=== PATIENT | female | born 1965 | race Caucasian/White ===

== ENCOUNTER 2016-12-21 16:51 | Emergency (ER) | payer BC ==
[2016-12-21] MEDS ORDERED: Ondansetron 4 MG Tab.DIS PO ONE (17:12)
--- NOTE | 2016-12-21 17:19 | EDM.PDOC ---
ED HPI GI/ABDOMINAL - General Chief Complaint: Gastrointestinal Problem Stated Complaint: Nausea, vomiting and dizziness Time Seen by Provider: 12/21/16 17:10 Source of Information: Reports: Patient History Limitations: Reports: No limitations - History of Present Illness INITIAL COMMENTS - FREE TEXT/NARRATIVE: Patient states that she ate a chicken potpie at around 12:30 today and began feeling nauseated at about 13:30. She was continuing to have some abdominal discomfort and dizziness and decided to come to the ED for evaluation. She vomited once on the way here and became very dizzy and diaphoretic afterwards. She currently denies fever, chills, abdominal pain, chest pain, and SOB. She has no family history of heart attack. She has not had any abdominal surgeries. Symptom Onset Date: 12/21/16 Symptom Onset Time: 01:30 Timing/Duration: Reports: Hour(s): (4), Improving Location: RLQ Quality: Reports: ache Severity: mild Improves with: Reports: lying down Worsens with: Reports: defecating, vomiting, other (bearing down and coughing) Associated Symptoms (-Female): Reports: chest pain, back pain, diarrhea, bloody stools, fever/chills, other (Dizziness) - Related Data Allergies/ADRs: Allergies Allergy/AdvReac Type Severity Reaction Status Date / Time No Known Allergies Allergy Verified 12/21/16 17:04 Home Meds: Home Meds Levothyroxine Sodium 50 mcg DAILY 12/21/16 [History] Ondansetron [Zofran ODT] 4 mg PO Q4H #30 tab.dis 12/21/16 [Rx] ED ROS GENERAL - Review of Systems Review Of Systems: ROS reveals no pertinent complaints other than HPI. Constitutional: Reports: no symptoms HEENT: Reports: No symptoms Respiratory: Reports: no symptoms Cardiovascular: Reports: No symptoms Endocrine: Reports: no symptoms GI/Abdominal: Reports: Nausea, Vomiting : Reports: no symptoms Musculoskeletal: Reports: no symptoms Skin: Reports: no symptoms Neurological: Reports: dizziness Psychiatric: Reports: No symptoms Hematologic/Lymphatic: Reports: no symptoms Immunologic: Reports: no symptoms ED EXAM, GI/ABD - Physical Exam Exam: See Below Exam Limited By: No limitations General Appearance: alert, WD/WN, no apparent distress Head: atraumatic, normocephalic Neck: normal inspection, supple, non-tender, full range of motion Respiratory/Chest: no respiratory distress, lungs clear, normal breath sounds, no accessory muscle use, chest non-tender Cardiovascular: normal peripheral pulses, regular rate, rhythm, no edema, no gallop, no JVD, no murmur, no rub GI/Abdominal: normal bowel sounds, soft, non tender, no organomegaly, no distention, no abnormal bruit, no mass, hernia (right lower quadrant easily reducible direct wall abdominal hernia) (Female) Exam: Deferred Rectal (Female) Exam: Deferred Extremities: normal inspection, no pedal edema, normal capillary refill Neurological: alert, oriented, normal cognition, normal gait, normal reflexes, no motor/sensory deficits Psychiatric: normal affect, normal mood Skin Exam: Warm, Dry, Intact, Normal color, No rash Lymphatic: no adenopathy EKG INTERPRETATION Rhythm: NSR Tucker: normal P-wave: present QRS: normal ST-T: normal QT: normal Course - Vital Signs Last Recorded V/S: Last Vital Signs Temp 36.8 C 12/21/16 16:52 Pulse 87 12/21/16 16:52 Resp 16 12/21/16 16:52 BP 138/82 12/21/16 16:52 Pulse Ox - Orders/Labs/Meds Orders: Active Orders 24 hr Category Date Time Status EKG Documentation Completion [RC] STAT Care 12/21/16 17:12 Ordered Meds: Medications Discontinued Medications Generic Name Dose Route Start Last Admin Trade Name Mirtha PRN Reason Stop Dose Admin Ondansetron HCl 8 mg 12/21/16 17:12 Zofran Odt PO 12/21/16 17:13 ONETIME ONE Departure - Departure Time of Disposition: 05:50 Disposition: Home, Self-Care 01 Condition: good Clinical Impression: Vomiting Prescriptions: Ondansetron [Zofran ODT] 4 mg PO Q4H #30 tab.dis Instructions: Nausea and Vomiting, Adult, [id number], Viral Gastroenteritis, Adult, [id number] Forms: ED Department Discharge - Problem List Review Problem List Initiated/Reviewed/Updated: Yes - My Orders Last 24 Hours: My Active Orders 12/21/16 17:12 EKG Documentation Completion [RC] STAT - Assessment/Plan Last 24 Hours: My Active Orders 12/21/16 17:12 EKG Documentation Completion [RC] STAT Assessment:: Nausea and vomiting/Viral gastroenteritis Plan: Zofran ODT 4m every 4-6 hours as needed for nausea and vomiting. Return if no improvement in two days. Return for assessment or follow up with primary care if you have increased abdominal pain, fever, shortness of breath, or chest pain.
[2016-12-21 17:24] VITALS: BP 138/82
== END 2016-12-21 17:45 | disposition home or self-care (01) ==
LOC: VM.ED 16:51
DX: R11.2 Nausea with vomiting, unspecified (principal); Z79.899 Other long term (current) drug therapy
CPT/HCPCS: 93005; 99283; A9270

== ENCOUNTER 2019-04-02 11:59 | Emergency (ER) | payer BC, OTHER ==
[2019-04-02] MEDS ORDERED: Sodium Chloride 0.9% 10 ML Syringe FLUSH PRN (12:26)
[2019-04-02 12:28] VITALS: BP 132/91
[2019-04-02] MEDS ORDERED: Morphine 2 MG/ML Syringe IVPUSH ONE (12:31)
[2019-04-02] MEDS ORDERED: Iopamidol 612 MG/ML 100 ML Bottle IVPUSH ONE (13:10)
[2019-04-02 13:18] LABS: CHLORIDE,CL 102 mmol/L (98-107); SODIUM,NA 140 mmol/L (136-145)
[2019-04-02 13:21] LABS: ANION GAP 14.7 mmol/L (10-20)
--- NOTE | 2019-04-02 13:58 | CT ---
[id number] CT/CT Abdomen Pelvis W IV EXAM: CT Abdomen Pelvis W IV CLINICAL DATA: RIGHT LOWER QUADRANT PAIN. COMPARISON STUDY: None. FINDINGS: Lung bases are clear. Liver, spleen, gallbladder, pancreas, and adrenal glands are unremarkable. Bilateral renal cysts. There is a least one cyst within the midpole of the right kidney which demonstrates a few septations and areas of hyperdensity. It measures up to 2.2 cm. This may be hemorrhagic. No bowel obstruction or inflammation. The appendix is visualized and appears normal. No lymphadenopathy, free fluid, or pneumoperitoneum. The cervix and endometrium are asymmetrically enlarged with masslike density in the uterus. Scattered changes of spondylosis the spine. No fracture or osseous lesion. IMPRESSION: 1. Cervix and endometrium are asymmetrically in the enlarged. Additionally there are multiple uterine fibroids. Given the appearance, further evaluation is recommended with gynecological examination. Additionally MRI of the pelvis could be considered for further evaluation on a nonemergent basis. 2. Complex mid pole right renal cyst measuring up to 2.2 cm. Follow-up renal ultrasound in 6 months is recommended to ensure stability. Israel Garg DO 04/02/19 2234 Thank you for allowing us to participate in the care of your patient.
--- NOTE | 2019-04-02 14:29 | EDM.PDOC ---
ED HPI GENERAL MEDICAL PROBLEM - General Chief Complaint: Abdominal Pain Stated Complaint: SHARP ABDOMIN PAIN RIGHT SIDE Time Seen by Provider: 04/02/19 12:14 Source of Information: Reports: Patient History Limitations: Reports: No Limitations - History of Present Illness INITIAL COMMENTS - FREE TEXT/NARRATIVE: Patient reports lower abdominal pain on the right side and this started 2-3 days ago. She does have a scheduled hysterectomy April 21 due to abnormal findings to her endometrium and cervix. No nausea or vomiting. Worse with movement. No urinary symptoms. Is currently menstruating. Denies chest pain, sob, headache, neck pain, no vomiting, no fever or chills. States she was here last year and had a hernia put back in place manually. Onset: Gradual Duration: Intermittent Location: Reports: Abdomen Quality: Reports: Ache Severity: Mild Associated Symptoms: Reports: No Other Symptoms Right Lower Abdomen Pain Score (Numeric/FACES): 7 - Related Data Allergies Allergy/AdvReac Type Severity Reaction Status Date / Time No Known Allergies Allergy Verified 04/02/19 12:47 Home Meds: Home Meds Levothyroxine Sodium 50 mcg DAILY 12/21/16 [History] Ondansetron [Zofran ODT] 4 mg PO Q4H #30 tab.dis 12/21/16 [Rx] Past Medical History Musculoskeletal History: Reports: Other (See Below) Other Musculoskeletal History: wrist fx Endocrine/Metabolic History: Reports: Hypothyroidism - Past Surgical History GI Surgical History: Reports: Hernia, Abdominal Social & Family History - Tobacco Use Smoking Status *Q: Never Smoker ED ROS GENERAL - Review of Systems Review Of Systems: See Below Constitutional: Reports: No Symptoms HEENT: Reports: No Symptoms Respiratory: Reports: No Symptoms Cardiovascular: Reports: No Symptoms Endocrine: Reports: No Symptoms GI/Abdominal: Reports: Abdominal Pain : Reports: No Symptoms Musculoskeletal: Reports: No Symptoms Skin: Reports: No Symptoms Neurological: Reports: No Symptoms Psychiatric: Reports: No Symptoms Hematologic/Lymphatic: Reports: No Symptoms Immunologic: Reports: No Symptoms ED EXAM, GI/ABD - Physical Exam Exam: See Below Exam Limited By: No Limitations General Appearance: Alert, WD/WN, No Apparent Distress Eyes: Bilateral: Normal Appearance, EOMI Ears: Normal TMs Throat/Mouth: Normal Inspection, Normal Lips, Normal Teeth, Normal Gums, Normal Oropharynx, Normal Voice, No Airway Compromise Head: Atraumatic, Normocephalic Neck: Normal Inspection, Supple, Non-Tender, Full Range of Motion Respiratory/Chest: No Respiratory Distress, Lungs Clear, Normal Breath Sounds, No Accessory Muscle Use, Chest Non-Tender Cardiovascular: Normal Peripheral Pulses, Regular Rate, Rhythm, No Edema, No Gallop, No JVD, No Murmur, No Rub GI/Abdominal Exam: Normal Bowel Sounds, Soft, Non-Tender, No Organomegaly, No Distention, No Abnormal Bruit, No Mass, Pelvis Stable Back Exam: Normal Inspection, Full Range of Motion, NT Extremities: Normal Inspection, Normal Range of Motion, Non-Tender, Normal Capillary Refill, No Pedal Edema Neurological: Alert, Oriented, CN II-XII Intact, Normal Cognition, Normal Gait, Normal Reflexes, No Motor/Sensory Deficits Psychiatric: Normal Affect, Normal Mood Skin Exam: Warm, Dry, Intact, Normal Color, No Rash Lymphatic: No Adenopathy Course - Vital Signs Last Recorded V/S: Last Vital Signs Temp 36.7 C 04/02/19 12:03 Pulse 85 04/02/19 12:03 Resp 18 04/02/19 12:03 BP 132/91 H 04/02/19 12:03 Pulse Ox 98 04/02/19 12:03 - Orders/Labs/Meds Orders: Active Orders 24 hr Category Date Time Status URINALYSIS W/MICROSCOPIC [UA W/MICROSCOPIC] [URIN] Stat Lab 04/02/19 13:28 Ordered Sodium Chloride 0.9% [Saline Flush] Med 04/02/19 12:26 Active 10 ml FLUSH ASDIRECTED PRN Saline Lock Insert [OM.PC] Routine Oth 04/02/19 12:26 Ordered Medication Orders Sodium Chloride (Saline Flush) 10 ml FLUSH ASDIRECTED PRN PRN Reason: Keep Vein Open Labs: Laboratory Tests 04/02/19 04/02/19 04/02/19 Range/Units 12:40 12:40 12:40 WBC 7.1 (4.0-10.0) x10^3/uL RBC 3.99 L (4.00-5.50) x10^6/uL Hgb 12.0 (12.0-16.0) g/dL Hct 36.1 (33.0-47.0) % MCV 90.5 (78.0-93.0) fL MCH 30.1 (26.0-32.0) pg MCHC 33.2 (32.0-36.0) g/dL RDW Coeff of Pop 13.1 (10.0-15.0) % Plt Count 329 (130-400) x10^3/uL Neut % (Auto) 71.1 (50.0-80.0) % Lymph % (Auto) 20.9 L (25.0-50.0) % Day % (Auto) 6.6 (2.0-11.0) % Eos % (Auto) 1.3 (0.0-4.0) % Baso % (Auto) 0.1 L (0.2-1.2) % Sodium 140 (136-145) mmol/L Potassium 3.7 (3.5-5.1) mmol/L Chloride 102 (98-107) mmol/L Carbon Dioxide 27 (21-32) mmol/L Anion Gap 14.7 (10-20) mmol/L BUN 10 (7-18) mg/dL Creatinine 0.7 (0.55-1.02) mg/dL Est Cr Clr Drug Dosing TNP Estimated GFR (MDRD) > 60 Glucose 99 (74-106) mg/dL Lactic Acid 1.4 (0.4-2.0) mmol/L Calcium 9.0 (8.5-10.1) mg/dL Corrected Calcium 9.00 (8.5-10.1) mg/dL Total Bilirubin 0.6 (0.2-1.0) mg/dL AST 20 (15-37) U/L ALT 26 (14-59) U/L Alkaline Phosphatase 90 (46-116) U/L C-Reactive Protein 1.0 H (<=0.9) mg/dL Total Protein 8.4 H (6.4-8.2) g/dL Albumin 4.0 (3.4-5.0) g/dL Globulin 4.4 Albumin/Globulin Ratio 0.91 Amylase 42 (25-115) U/L Lipase 207 (73-393) U/L Meds: Medications Generic Name Dose Route Start Last Admin Trade Name Freq PRN Reason Stop Dose Admin Sodium Chloride 10 ml 04/02/19 12:26 Saline Flush FLUSH ASDIRECTED PRN Keep Vein Open Discontinued Medications Generic Name Dose Route Start Last Admin Trade Name Refugioq PRN Reason Stop Dose Admin Iopamidol 100 ml 04/02/19 13:10 04/02/19 13:37 Isovue-300 (61%) IVPUSH 04/02/19 13:11 100 ml ONETIME ONE Administration Morphine Sulfate 2 mg 04/02/19 12:31 Morphine IVPUSH 04/02/19 12:32 ONETIME ONE - Radiology Interpretation Free Text/Narrative:: CT abdomen shows renal cyst, asymmetric endometrium and cervix. No acute process. Normal appendix. Departure - Departure Time of Disposition: 14:51 Disposition: Home, Self-Care 01 Condition: Good Clinical Impression: Abdominal pain, Pyelonephritis - Discharge Information *PRESCRIPTION DRUG MONITORING PROGRAM REVIEWED*: Not Applicable *COPY OF PRESCRIPTION DRUG MONITORING REPORT IN PATIENT [place]: Not Applicable Instructions: Abdominal Pain, Adult, Pyelonephritis, Adult, [id number], Ciprofloxacin tablets, Probiotics Referrals: Rufina Bass MD [Primary Care Provider] - Additional Instructions: Plan 1. Follow up with your primary doctor or shearer operator relating to your abdominal pain. 2. MRI may be needed for evaluation of your cervix and endometrium due to enlargement and asymmetry. 3. May alternate ibuprofen and tylenol as needed for pain relief. 4. Stay well hydrated 5. Take Cipro once a day for the next 4 days. Your first dose was given here. You have pyelonephritis which is a kidney infection. 6. Please call if you have any questions or concerns. - Problem List & Annotations (1) Abdominal pain SNOMED Code(s): 35889473 Code(s): R10.9 - UNSPECIFIED ABDOMINAL PAIN Status: Acute Priority: Low Current Visit: Yes Qualifiers: Abdominal location: right lower quadrant Qualified Code(s): R10.31 - Right lower quadrant pain - Problem List Review Problem List Initiated/Reviewed/Updated: Yes - My Orders Last 24 Hours: My Active Orders 04/02/19 12:26 Sodium Chloride 0.9% [Saline Flush] 10 ml FLUSH ASDIRECTED PRN Saline Lock Insert [OM.PC] Routine 04/02/19 13:28 URINALYSIS W/MICROSCOPIC [UA W/MICROSCOPIC] [URIN] Stat - Assessment/Plan Last 24 Hours: My Active Orders 04/02/19 12:26 Sodium Chloride 0.9% [Saline Flush] 10 ml FLUSH ASDIRECTED PRN Saline Lock Insert [OM.PC] Routine 04/02/19 13:28 URINALYSIS W/MICROSCOPIC [UA W/MICROSCOPIC] [URIN] Stat Assessment:: right lower quadrant abdominal pain pyelonephritis Plan: Plan 1. Follow up with your primary doctor or shearer operator relating to your abdominal pain. 2. MRI may be needed for evaluation of your cervix and endometrium due to enlargement and asymmetry. 3. May alternate ibuprofen and tylenol as needed for pain relief. 4. Stay well hydrated 5. Take Cipro once a day for the next 4 days. Your first dose was given here. You have pyelonephritis which is a kidney infection. 6. Please call if you have any questions or concerns.
[2019-04-02] MEDS ORDERED: Ciprofloxacin 500 MG Tab PO ONE (14:46)
== END 2019-04-02 14:58 | disposition home or self-care (01) ==
LOC: VM.ED 11:59
DX: N12 Tubulo-interstitial nephritis, not specified as acute or chronic (principal); E03.9 Hypothyroidism, unspecified; Z79.899 Other long term (current) drug therapy
CPT/HCPCS: 36415; 74177; 80053; 81001; 82150; 83605; 83690; 85025; 86140; 99284-25; A9270-GY; Q9967

== ENCOUNTER 2021-09-02 11:02 | Inpatient (IN) | payer OTHER ==
--- NOTE | 2021-09-02 10:49 | EDM.PDOC ---
ED HPI GENERAL MEDICAL PROBLEM - General Stated Complaint: COVID SOB Time Seen by Provider: 09/01/21 22:40 Source of Information: Reports: Patient History Limitations: Reports: No Limitations - History of Present Illness INITIAL COMMENTS - FREE TEXT/NARRATIVE: Patient comes emergency department today from the clinic with concerns of Covid and hypoxia. This patient had a positive Covid test on 08/21/2021. She did not receive any antibody infusion.Patient seen Alberto has a history of hypothyroidism hypercholesteremia obesity KAMLA. Over the past 3 to 4 days she has had increasing shortness of breath generalized malaise and fatigue. She has been drinking fluids well but not eating much for solids. She has no pain in her chest syncope palpitations lightheadedness or dizziness. No abdominal pain nausea or vomiting. No hematuria dysuria urinary frequency. No black tarry stools. She is not Covid vaccinated. She is influenza vaccinated. Noted in the clinic to have an oxygen saturation of 80 to 81% on room air. - Related Data Allergies Allergy/AdvReac Type Severity Reaction Status Date / Time No Known Allergies Allergy Verified 09/02/21 11:12 Home Meds: Home Meds Levothyroxine Sodium 50 mcg PO DAILY 12/21/16 [History] Past Medical History Musculoskeletal History: Reports: Other (See Below) Other Musculoskeletal History: wrist fx Endocrine/Metabolic History: Reports: Hypothyroidism - Past Surgical History GI Surgical History: Reports: Hernia, Abdominal ED ROS GENERAL - Review of Systems Review Of Systems: Comprehensive ROS is negative, except as noted in HPI. ED EXAM, GENERAL - Physical Exam Exam: See Below Exam Limited By: No Limitations General Appearance: Alert, WD/WN, Mild Distress (Mild distress. NO labored breathing able to speak in 4-6 word sentences. ). No: Lethargic, Obtunded Ears: Normal External Exam Nose: Normal Inspection Throat/Mouth: Normal Inspection Head: Atraumatic, Normocephalic Neck: Normal Inspection Respiratory/Chest: No Respiratory Distress, No Accessory Muscle Use, Chest Non- Tender, Crackles (Fine inspiratory crackles bilaterally. ) Cardiovascular: Normal Peripheral Pulses, Regular Rate, Rhythm GI/Abdominal: Normal Bowel Sounds, Soft, Non-Tender (Female) Exam: Deferred Rectal (Female) Exam: Deferred Back Exam: Normal Inspection, Decreased Range of Motion Extremities: Normal Inspection, Normal Range of Motion, No Pedal Edema, Normal Capillary Refill Neurological: Alert, Oriented, Normal Cognition, Normal Gait, No Motor/Sensory Deficits Psychiatric: Normal Affect, Normal Mood Skin Exam: Intact, Cool, Diaphoretic, Pallor Course - Vital Signs Last Recorded V/S: Last Vital Signs Temp 98.5 F 09/02/21 17:52 Pulse 75 09/02/21 17:52 Resp 28 H 09/02/21 17:52 BP 123/84 09/02/21 17:52 Pulse Ox 91 L 09/02/21 21:06 - Orders/Labs/Meds Orders: Active Orders 24 hr Category Date Time Status CULTURE BLOOD [BC] Stat Lab 09/02/21 10:40 Received CULTURE BLOOD [BC] Stat Lab 09/02/21 10:58 Received CULTURE URINE [RM] Stat Lab 09/02/21 11:27 Received Sodium Chloride 0.9% [Saline Flush] Med 09/02/21 10:35 Active 10 ml FLUSH ASDIRECTED PRN Blood Culture x2 Reflex Set [OM.PC] Stat Oth 09/02/21 10:35 Ordered Peripheral IV Insertion Adult [OM.PC] Stat Ot 09/02/21 10:34 Ordered Medication Orders Acetaminophen (Acetaminophen 325 Mg Tab) 650 mg PO Q4H PRN PRN Reason: Fever Last Admin: 09/02/21 17:57 Dose: 650 mg Documented by: KIN Ascorbic Acid (Ascorbic Acid 500 Mg Tab) 1,000 mg PO BID [facility] Last Admin: 09/02/21 20:27 Dose: 1,000 mg Documented by: PRIETO Ceftriaxone Sodium (Ceftriaxone 1 Gm Vial) 1 gm IVPUSH DAILY@1200 [facility] Cholecalciferol (Cholecalciferol (Vitamin D3) 25 Mcg Tab) 25 mcg PO DAILY [facility] Dexamethasone 2 mg/ (Dexamethasone 4 mg) 6 mg PO DAILY [facility] Enoxaparin Sodium (Enoxaparin 40 Mg/0.4 Ml Syringe) 40 mg SUBCUT DAILY@1200 [facility] Last Admin: 09/02/21 14:21 Dose: 40 mg Documented by: KIN Remdesivir 100 mg/ Sodium (Chloride) 100 mls @ 100 mls/hr IV Q24H [facility] Stop: 09/06/21 12:59 Levothyroxine Sodium (Levothyroxine 50 Mcg Tab) 50 mcg PO DAILY [facility] Sodium Chloride (Sodium Chloride 0.9% 10 Ml Syringe) 10 ml FLUSH ASDIRECTED PRN PRN Reason: Keep Vein Open Last Admin: 09/02/21 20:29 Dose: 10 ml Documented by: PRIETO Zinc Sulfate (Zinc Sulfate 220 Mg Cap) 220 mg PO DAILY [facility]I Labs: Laboratory Tests 09/02/21 09/02/21 09/02/21 Range/Units 10:40 10:58 10:58 WBC 5.8 (4.0-10.0) x10^3/uL RBC 4.50 (4.00-5.50) x10^6/uL Hgb 12.9 (12.0-16.0) g/dL Hct 38.2 (33.0-47.0) % MCV 84.9 (78.0-93.0) fL MCH 28.7 (26.0-32.0) pg MCHC 33.8 (32.0-36.0) g/dL RDW Coeff of Pop 12.9 (10.0-15.0) % Plt Count 322 (130-400) x10^3/uL Immature Gran % (Auto) 0.90 H (0.00-0.43) % Neut % (Auto) 85.6 H (50.0-80.0) % Lymph % (Auto) 10.5 L (25.0-50.0) % [place] % (Auto) 2.8 (2.0-11.0) % Eos % (Auto) 0.0 (0.0-4.0) % Baso % (Auto) 0.2 (0.2-1.2) % Neut # (Auto) 5.0 (1.8-7.7) x10^3/uL Lymph # (Auto) 0.6 L (1.0-4.8) x10^3/uL [place] # (Auto) 0.2 (0.0-0.8) x10^3/uL Eos # (Auto) 0.0 (0.0-0.5) x10^3/uL Baso # (Auto) 0.0 (0.0-0.2) x10^3/uL Immature Gran # (Auto) 0.05 (0.00-0.07) x10^3/uL PT (9.9-12.5) SEC INR (2.0-3.5) APTT (25.6-32.8) SEC D-Dimer, Quantitative (<=0.58) mg/LFEU POC VBG pH (7.33-7.43) pH POC VBG pCO2 (41-51) mmHg POC VBG pO2 mmHg POC VBG HCO3 (22-29) mmol/L POC Venous O2 Sat % VBG Base Excess (-(2)-3) mmol/L POC FiO2 Sodium 142 (136-145) mmol/L Potassium 3.2 L (3.5-5.1) mmol/L Chloride 102 (98-107) mmol/L Carbon Dioxide 28 (21-32) mmol/L POC Venous Total CO2 (23-30) mmol/L Anion Gap 15.2 H (5-15) mmol/L BUN 8 (7-18) mg/dL Creatinine 0.7 (0.55-1.02) mg/dL Est Cr Clr Drug Dosing TNP Estimated GFR (MDRD) > 60 Glucose 118 H (70-99) mg/dL Lactic Acid 1.7 (0.4-2.0) mmol/L Calcium 8.8 (8.5-10.1) mg/dL Corrected Calcium 9.8 (8.5-10.1) mg/dL Ferritin (8-252) ng/mL Total Bilirubin 0.6 (0.2-1.0) mg/dL AST 145 H (15-37) U/L ALT 135 H (14-59) U/L Alkaline Phosphatase 86 (46-116) U/L Lactate Dehydrogenase 457 H (81-234) U/L Troponin I High Sens 20 (<=51) ng/L C-Reactive Protein 9.8 H (<=0.9) mg/dL NT-Pro-B Natriuret Pep 114 (<=125) pg/mL Total Protein 7.4 (6.4-8.2) g/dL Albumin 2.8 L (3.4-5.0) g/dL Globulin 4.6 Albumin/Globulin Ratio 0.61 Procalcitonin (0.1-0.50) ng/mL Urine Color (YELLOW) Urine Appearance (CLEAR) Urine pH (5.0-8.0) Ur Specific [place] Urine Protein (NEGATIVE) mg/dL Urine Glucose (UA) (NEGATIVE) mg/dL Urine Ketones (NEGATIVE) mg/dL Urine Occult Blood (NEGATIVE) Urine Nitrite (NEGATIVE) Urine Bilirubin (NEGATIVE) Urine Urobilinogen (0.2) EU/dL Ur Leukocyte Esterase (NEGATIVE) U Hyaline Cast (Auto) Urine RBC (NOT SEEN) /HPF Urine WBC (NOT SEEN) /HPF Ur Squamous Epith Cells (NOT SEEN) /HPF Urine Bacteria (NOT SEEN) /HPF Urine Mucus (NOT SEEN) /LPF 09/02/21 09/02/21 09/02/21 Range/Units 10:58 10:58 10:58 WBC (4.0-10.0) x10^3/uL RBC (4.00-5.50) x10^6/uL Hgb (12.0-16.0) g/dL Hct (33.0-47.0) % MCV (78.0-93.0) fL MCH (26.0-32.0) pg MCHC (32.0-36.0) g/dL RDW Coeff of Pop (10.0-15.0) % Plt Count (130-400) x10^3/uL Immature Gran % (Auto) (0.00-0.43) % Neut % (Auto) (50.0-80.0) % Lymph % (Auto) (25.0-50.0) % [place] % (Auto) (2.0-11.0) % Eos % (Auto) (0.0-4.0) % Baso % (Auto) (0.2-1.2) % Neut # (Auto) (1.8-7.7) x10^3/uL Lymph # (Auto) (1.0-4.8) x10^3/uL [place] # (Auto) (0.0-0.8) x10^3/uL Eos # (Auto) (0.0-0.5) x10^3/uL Baso # (Auto) (0.0-0.2) x10^3/uL Immature Gran # (Auto) (0.00-0.07) x10^3/uL PT 9.7 L (9.9-12.5) SEC INR 0.9 L (2.0-3.5) APTT 24.3 L (25.6-32.8) SEC D-Dimer, Quantitative 1.53 H (<=0.58) mg/LFEU POC VBG pH (7.33-7.43) pH POC VBG pCO2 (41-51) mmHg POC VBG pO2 mmHg POC VBG HCO3 (22-29) mmol/L POC Venous O2 Sat % VBG Base Excess (-(2)-3) mmol/L POC FiO2 Sodium (136-145) mmol/L Potassium (3.5-5.1) mmol/L Chloride (98-107) mmol/L Carbon Dioxide (21-32) mmol/L POC Venous Total CO2 (23-30) mmol/L Anion Gap (5-15) mmol/L BUN (7-18) mg/dL Creatinine (0.55-1.02) mg/dL Est Cr Clr Drug Dosing Estimated GFR (MDRD) Glucose (70-99) mg/dL Lactic Acid (0.4-2.0) mmol/L Calcium (8.5-10.1) mg/dL Corrected Calcium (8.5-10.1) mg/dL Ferritin 2486 H (8-252) ng/mL Total Bilirubin (0.2-1.0) mg/dL AST (15-37) U/L ALT (14-59) U/L Alkaline Phosphatase (46-116) U/L Lactate Dehydrogenase (81-234) U/L Troponin I High Sens (<=51) ng/L C-Reactive Protein (<=0.9) mg/dL NT-Pro-B Natriuret Pep (<=125) pg/mL Total Protein (6.4-8.2) g/dL Albumin (3.4-5.0) g/dL Globulin Albumin/Globulin Ratio Procalcitonin 0.05 L (0.1-0.50) ng/mL Urine Color (YELLOW) Urine Appearance (CLEAR) Urine pH (5.0-8.0) Ur Specific [place] Urine Protein (NEGATIVE) mg/dL Urine Glucose (UA) (NEGATIVE) mg/dL Urine Ketones (NEGATIVE) mg/dL Urine Occult Blood (NEGATIVE) Urine Nitrite (NEGATIVE) Urine Bilirubin (NEGATIVE) Urine Urobilinogen (0.2) EU/dL Ur Leukocyte Esterase (NEGATIVE) U Hyaline Cast (Auto) Urine RBC (NOT SEEN) /HPF Urine WBC (NOT SEEN) /HPF Ur Squamous Epith Cells (NOT SEEN) /HPF Urine Bacteria (NOT SEEN) /HPF Urine Mucus (NOT SEEN) /LPF 09/02/21 09/02/21 Range/Units 11:12 11:27 WBC (4.0-10.0) x10^3/uL RBC (4.00-5.50) x10^6/uL Hgb (12.0-16.0) g/dL Hct (33.0-47.0) % MCV (78.0-93.0) fL MCH (26.0-32.0) pg MCHC (32.0-36.0) g/dL RDW Coeff of Ppo (10.0-15.0) % Plt Count (130-400) x10^3/uL Immature Gran % (Auto) (0.00-0.43) % Neut % (Auto) (50.0-80.0) % Lymph % (Auto) (25.0-50.0) % [place] % (Auto) (2.0-11.0) % Eos % (Auto) (0.0-4.0) % Baso % (Auto) (0.2-1.2) % Neut # (Auto) (1.8-7.7) x10^3/uL Lymph # (Auto) (1.0-4.8) x10^3/uL [place] # (Auto) (0.0-0.8) x10^3/uL Eos # (Auto) (0.0-0.5) x10^3/uL Baso # (Auto) (0.0-0.2) x10^3/uL Immature Gran # (Auto) (0.00-0.07) x10^3/uL PT (9.9-12.5) SEC INR (2.0-3.5) APTT (25.6-32.8) SEC D-Dimer, Quantitative (<=0.58) mg/LFEU POC VBG pH 7.45 H (7.33-7.43) pH POC VBG pCO2 40 L (41-51) mmHg POC VBG pO2 39 mmHg POC VBG HCO3 27 (22-29) mmol/L POC Venous O2 Sat 75 % VBG Base Excess 3 (-(2)-3) mmol/L POC FiO2 21 Sodium (136-145) mmol/L Potassium (3.5-5.1) mmol/L Chloride (98-107) mmol/L Carbon Dioxide (21-32) mmol/L POC Venous Total CO2 27 (23-30) mmol/L Anion Gap (5-15) mmol/L BUN (7-18) mg/dL Creatinine (0.55-1.02) mg/dL Est Cr Clr Drug Dosing Estimated GFR (MDRD) Glucose (70-99) mg/dL Lactic Acid (0.4-2.0) mmol/L Calcium (8.5-10.1) mg/dL Corrected Calcium (8.5-10.1) mg/dL Ferritin (8-252) ng/mL Total Bilirubin (0.2-1.0) mg/dL AST (15-37) U/L ALT (14-59) U/L Alkaline Phosphatase (46-116) U/L Lactate Dehydrogenase (81-234) U/L Troponin I High Sens (<=51) ng/L C-Reactive Protein (<=0.9) mg/dL NT-Pro-B Natriuret Pep (<=125) pg/mL Total Protein (6.4-8.2) g/dL Albumin (3.4-5.0) g/dL Globulin Albumin/Globulin Ratio Procalcitonin (0.1-0.50) ng/mL Urine Color Dark yellow H (YELLOW) Urine Appearance Cloudy H (CLEAR) Urine pH 7.0 (5.0-8.0) Ur Specific [place] 1.015 Urine Protein 100 H (NEGATIVE) mg/dL Urine Glucose (UA) Negative (NEGATIVE) mg/dL Urine Ketones Negative (NEGATIVE) mg/dL Urine Occult Blood Small H (NEGATIVE) Urine Nitrite Positive H (NEGATIVE) Urine Bilirubin Small H (NEGATIVE) Urine Urobilinogen >=8.0 H (0.2) EU/dL Ur Leukocyte Esterase Small H (NEGATIVE) U Hyaline Cast (Auto) Few Urine RBC 5-10 H (NOT SEEN) /HPF Urine WBC 20-30 H (NOT SEEN) /HPF Ur Squamous Epith Cells Few H (NOT SEEN) /HPF Urine Bacteria Many H (NOT SEEN) /HPF Urine Mucus Rare H (NOT SEEN) /LPF Meds: Medications Generic Name Dose Route Start Last Admin Trade Name Freq PRN Reason Stop Dose Admin Acetaminophen 650 mg 09/02/21 16:31 09/02/21 17:57 Acetaminophen 325 Mg Tab PO 650 mg Q4H PRN Administration Fever Ascorbic Acid 1,000 mg 09/02/21 20:00 09/02/21 20:27 Ascorbic Acid 500 Mg Tab PO 1,000 mg BID DIDI Administration Ceftriaxone Sodium 1 gm 09/03/21 12:00 Ceftriaxone 1 Gm Vial IVPUSH DAILY@1200 DIDI Cholecalciferol 25 mcg 09/03/21 08:00 Cholecalciferol (Vitamin D3) 25 Mcg Tab PO DAILY [facility] Dexamethasone 2 mg/ 6 mg 09/03/21 08:00 Dexamethasone 4 mg PO DAILY [facility] Enoxaparin Sodium 40 mg 09/02/21 13:45 09/02/21 14:21 Enoxaparin 40 Mg/0.4 Ml Syringe SUBCUT 40 mg DAILY@1200 DIDI Administration Remdesivir 100 mg/ Sodium 100 mls @ 100 mls/hr 09/03/21 12:00 Chloride IV 09/06/21 12:59 Q24H [facility] Levothyroxine Sodium 50 mcg 09/03/21 08:00 Levothyroxine 50 Mcg Tab PO DAILY [facility] Sodium Chloride 10 ml 09/02/21 10:35 09/02/21 20:29 Sodium Chloride 0.9% 10 Ml Syringe FLUSH 10 ml ASDIRECTED PRN Administration Keep Vein Open Zinc Sulfate 220 mg 09/03/21 08:00 Zinc Sulfate 220 Mg Cap PO DAILY [facility] Discontinued Medications Generic Name Dose Route Start Last Admin Trade Name Freq PRN Reason Stop Dose Admin Ceftriaxone Sodium 1 gm 09/02/21 12:18 09/02/21 13:06 Ceftriaxone 1 Gm Vial IVPUSH 09/02/21 12:19 1 gm STAT ONE Administration Dexamethasone 6 mg 09/02/21 10:42 09/02/21 11:23 Dexamethasone 4 Mg/Ml Sdv IVPUSH 09/02/21 10:43 6 mg ONETIME ONE Administration Lactated Ringer's 1,000 mls @ 999 mls/hr 09/02/21 12:54 09/02/21 13:06 Ringers, Lactated IV 09/02/21 13:54 999 mls/hr ONETIME ONE Administration Remdesivir 200 mg/ Sodium 250 mls @ 250 mls/hr 09/02/21 14:15 09/02/21 14:23 Chloride IV 09/02/21 15:14 250 mls/hr ONETIME ONE Administration Iopamidol 75 ml 09/02/21 12:35 09/02/21 12:35 Iopamidol 755 Mg/Ml 100 Ml Bottle IVPUSH 09/02/21 12:36 75 ml ONETIME ONE Administration - Re-Assessments/Exams Free Text/Narrative Re-Assessment/Exam: 09/02/21 10:48 IV was established. labs drawn to include blood cultures. oxygen 4 liters to keep oxygen above 90%. COVID Isolation. Dexamethasone 6mg IVP PE scan is negative. She is in no severe distress or failure. Has also has a UTI as well which was treated with rocephin. Culture pending. I spoke with Dr. Estrella who is on for the hospital today and she accepted this patient as an admit to the floor. The patient is comfortable with this plan and her questions answered. Departure - Departure Time of Disposition: 12:00 Disposition: Admitted As Inpatient 68 Clinical Impression: Pneumonia due to COVID-19 virus, Acute respiratory failure with hypoxia UTI (urinary tract infection) Qualifiers: Urinary tract infection type: acute cystitis Hematuria presence: without hematuria Qualified Code(s): N30.00 - Acute cystitis without hematuria - Discharge Information Sepsis Event Note (ED) - Focused Exam Vital Signs: Vital Signs Temp Pulse Resp BP Pulse Ox Pulse Ox 09/02/21 11:05 96 96 09/02/21 11:02 98.2 F 80 18 119/83 81 L - My Orders Last 24 Hours: My Active Orders 09/02/21 10:34 Peripheral IV Insertion Adult [OM.PC] Stat 09/02/21 10:35 Sodium Chloride 0.9% [Saline Flush] 10 ml FLUSH ASDIRECTED PRN Blood Culture x2 Reflex Set [OM.PC] Stat 09/02/21 10:40 CULTURE BLOOD [BC] Stat 09/02/21 10:58 CULTURE BLOOD [BC] Stat 09/02/21 11:27 CULTURE URINE [RM] Stat - Assessment/Plan Last 24 Hours: My Active Orders 09/02/21 10:34 Peripheral IV Insertion Adult [OM.PC] Stat 09/02/21 10:35 Sodium Chloride 0.9% [Saline Flush] 10 ml FLUSH ASDIRECTED PRN Blood Culture x2 Reflex Set [OM.PC] Stat 09/02/21 10:40 CULTURE BLOOD [BC] Stat 09/02/21 10:58 CULTURE BLOOD [BC] Stat 09/02/21 11:27 CULTURE URINE [RM] Stat
[~2021-09-02 11:02] MED LIST: Dexamethasone 4 MG/ML SDV IVPUSH ONE
[2021-09-02 11:29] LABS: PTT,PARTIAL THROMBOPLSTIN TIME 24.3 SEC (25.6-32.8)
[2021-09-02 11:38] LABS: CHLORIDE,CL 102 mmol/L (98-107); SODIUM,NA 142 mmol/L (136-145)
[2021-09-02 11:39] LABS: ANION GAP 15.2 mmol/L (5-15)
--- NOTE | 2021-09-02 11:40 | CR ---
[id number] RAD/RAD Chest PA or AP 1V EXAM: FRONTAL CHEST INDICATION: COVID HYPOXIA COMPARISON: None. DISCUSSION: Moderate patchy bilateral infiltrates with a peripheral predominance compatible the clinical history of COVID pneumonia. Mild cardiomegaly. IMPRESSION: 1. Moderate patchy bilateral infiltrates. Tavon Smart MD 09/02/21 [id number] Thank you for allowing us to participate in the care of your patient.
[2021-09-02] MEDS ORDERED: cefTRIAXone 1 GM Vial IVPUSH ONE (12:18)
--- NOTE | 2021-09-02 12:34 | PCM.HP.2 ---
H&P History of Present Illness - General Date of Service: 09/02/21 Admit Problem/Dx: Admission Diagnosis/Problem Admission Diagnosis/Problem Respiratory failure with hypoxia Source of Information: Patient History Limitations: Reports: No Limitations - History of Present Illness Initial Comments - Free Text/Narative: Mrs. Murillo is a 56 yo female with PMH of hypothyroidism, hyperlipidemia, and iron deficiency anemia who was referred to the ER from the clinic after being n oted to be hypoxic after presenting for evaluation of shortness of breath. She was diagnosed with COVID on 08/26 after having about 4 days of respiratory symptoms. Has had ongoing cough and shortness of breath since symptoms started. Also having right sided sinus congestion and headaches. Feels her ears are full. Not really wanting to eat/drink much of anything. Not nauseous or vomiting, just no appetite. No diarrhea. Was having fevers as well but those seem to have resolved. She is not vaccinated and declined MAB as well. She denies any dysuria, frequency, or urgency. - Related Data Allergies/Adverse Reactions: Allergies Allergy/AdvReac Type Severity Reaction Status Date / Time No Known Allergies Allergy Verified 09/02/21 11:12 Home Medications: Home Meds Levothyroxine Sodium 50 mcg PO DAILY 12/21/16 [History] Past Medical History HEENT History: Reports: Allergic Rhinitis Cardiovascular History: Reports: High Cholesterol Respiratory History: Reports: None Gastrointestinal History: Reports: None Genitourinary History: Reports: None Musculoskeletal History: Reports: Other (See Below) Other Musculoskeletal History: wrist fx Neurological History: Reports: None Psychiatric History: Reports: None Endocrine/Metabolic History: Reports: Hypothyroidism, Obesity/BMI 30+ Hematologic History: Reports: Anemia, Iron Deficiency Immunologic History: Reports: None Oncologic (Cancer) History: Reports: None - Infectious Disease History Infectious Disease History: Reports: Novel Coronavirus - Past Surgical History Female Surgical History: Reports: Hysterectomy Musculoskeletal Surgical History: Reports: Carpal Tunnel, Other (See Below) (wrist fracture) Social & Family History - Family History Oncologic: Reports: Other (See Below) (female cancer in mother) - Tobacco Use Tobacco Use Status *Q: Never Tobacco User - Alcohol Use Alcohol Use History: No Alcohol Use in Last Twelve Months: Yes Alcohol Use Frequency: Socially - Recreational Drug Use Recreational Drug Use: No - Living Situation & Occupation Living situation: Reports: , with Family Occupation: Employed H&P Review of Systems - Review of Systems: Review Of Systems: See Below General: Reports: Malaise, Weakness, Fatigue, Decreased Appetite. Denies: Fever, Chills HEENT: Reports: Ear Pain, Sinus Congestion. Denies: Sore Throat Pulmonary: Reports: Shortness of Breath, Cough. Denies: Pleuritic Chest Pain Cardiovascular: Reports: No Symptoms Gastrointestinal: Reports: Decreased Appetite. Denies: Abdominal Pain, Constipation, Diarrhea, Nausea, Vomiting Genitourinary: Reports: No Symptoms Musculoskeletal: Reports: No Symptoms Skin: Reports: No Symptoms Psychiatric: Reports: No Symptoms Neurological: Reports: Dizziness, Headache Exam - Exam Exam: See Below - Vital Signs Vital Signs: Last Vital Signs Temp 36.8 C 09/02/21 11:02 Pulse 80 09/02/21 11:02 Resp 18 09/02/21 11:02 BP 119/83 09/02/21 11:02 Pulse Ox 96 09/02/21 11:05 - Exam General: Alert, Oriented, Cooperative HEENT: Conjunctiva Clear, Mucosa Moist & [place], Posterior Pharynx Clear, Pupils Equal, Pupils Reactive, TMs Clear Neck: Supple, Trachea Midline. No: Lymphadenopathy, Thyromegaly Lungs: Normal Respiratory Effort, Crackles (at the bases bilaterally) Cardiovascular: Regular Rate, Regular Rhythm, Normal S1, Normal S2 GI/Abdominal Exam: Normal Bowel Sounds, Soft, Non-Tender, No Organomegaly, No Distention, No Mass Extremities: Normal Inspection, Non-Tender, No Pedal Edema, Normal Capillary Refill Peripheral Pulses: 2+: Radial (L), Radial (R) Skin: Warm, Dry, Intact Neuro Extensive - Mental Status: Alert, Oriented x3 - Patient Data Lab Results Last 24 hrs: Laboratory Results - last 24 hr 09/02/21 09/02/21 09/02/21 Range/Units 10:40 10:58 10:58 WBC 5.8 (4.0-10.0) x10^3/uL RBC 4.50 (4.00-5.50) x10^6/uL Hgb 12.9 (12.0-16.0) g/dL Hct 38.2 (33.0-47.0) % MCV 84.9 (78.0-93.0) fL MCH 28.7 (26.0-32.0) pg MCHC 33.8 (32.0-36.0) g/dL RDW Coeff of Pop 12.9 (10.0-15.0) % Plt Count 322 (130-400) x10^3/uL Immature Gran % (Auto) 0.90 H (0.00-0.43) % Neut % (Auto) 85.6 H (50.0-80.0) % Lymph % (Auto) 10.5 L (25.0-50.0) % [place] % (Auto) 2.8 (2.0-11.0) % Eos % (Auto) 0.0 (0.0-4.0) % Baso % (Auto) 0.2 (0.2-1.2) % Neut # (Auto) 5.0 (1.8-7.7) x10^3/uL Lymph # (Auto) 0.6 L (1.0-4.8) x10^3/uL [place] # (Auto) 0.2 (0.0-0.8) x10^3/uL Eos # (Auto) 0.0 (0.0-0.5) x10^3/uL Baso # (Auto) 0.0 (0.0-0.2) x10^3/uL Immature Gran # (Auto) 0.05 (0.00-0.07) x10^3/uL PT (9.9-12.5) SEC INR (2.0-3.5) APTT (25.6-32.8) SEC D-Dimer, Quantitative (<=0.58) mg/LFEU POC VBG pH (7.33-7.43) pH POC VBG pCO2 (41-51) mmHg POC VBG pO2 mmHg POC VBG HCO3 (22-29) mmol/L POC Venous O2 Sat % VBG Base Excess (-(2)-3) mmol/L POC FiO2 Sodium 142 (136-145) mmol/L Potassium 3.2 L (3.5-5.1) mmol/L Chloride 102 (98-107) mmol/L Carbon Dioxide 28 (21-32) mmol/L POC Venous Total CO2 (23-30) mmol/L Anion Gap 15.2 H (5-15) mmol/L BUN 8 (7-18) mg/dL Creatinine 0.7 (0.55-1.02) mg/dL Est Cr Clr Drug Dosing TNP Estimated GFR (MDRD) > 60 Glucose 118 H (70-99) mg/dL Lactic Acid 1.7 (0.4-2.0) mmol/L Calcium 8.8 (8.5-10.1) mg/dL Corrected Calcium 9.8 (8.5-10.1) mg/dL Ferritin (8-252) ng/mL Total Bilirubin 0.6 (0.2-1.0) mg/dL AST 145 H (15-37) U/L ALT 135 H (14-59) U/L Alkaline Phosphatase 86 (46-116) U/L Lactate Dehydrogenase 457 H (81-234) U/L Troponin I High Sens 20 (<=51) ng/L C-Reactive Protein 9.8 H (<=0.9) mg/dL NT-Pro-B Natriuret Pep 114 (<=125) pg/mL Total Protein 7.4 (6.4-8.2) g/dL Albumin 2.8 L (3.4-5.0) g/dL Globulin 4.6 Albumin/Globulin Ratio 0.61 Procalcitonin (0.1-0.50) ng/mL Urine Color (YELLOW) Urine Appearance (CLEAR) Urine pH (5.0-8.0) Ur Specific [place] Urine Protein (NEGATIVE) mg/dL Urine Glucose (UA) (NEGATIVE) mg/dL Urine Ketones (NEGATIVE) mg/dL Urine Occult Blood (NEGATIVE) Urine Nitrite (NEGATIVE) Urine Bilirubin (NEGATIVE) Urine Urobilinogen (0.2) EU/dL Ur Leukocyte Esterase (NEGATIVE) U Hyaline Cast (Auto) Urine RBC (NOT SEEN) /HPF Urine WBC (NOT SEEN) /HPF Ur Squamous Epith Cells (NOT SEEN) /HPF Urine Bacteria (NOT SEEN) /HPF Urine Mucus (NOT SEEN) /LPF 09/02/21 09/02/21 09/02/21 Range/Units 10:58 10:58 10:58 WBC (4.0-10.0) x10^3/uL RBC (4.00-5.50) x10^6/uL Hgb (12.0-16.0) g/dL Hct (33.0-47.0) % MCV (78.0-93.0) fL MCH (26.0-32.0) pg MCHC (32.0-36.0) g/dL RDW Coeff of Pop (10.0-15.0) % Plt Count (130-400) x10^3/uL Immature Gran % (Auto) (0.00-0.43) % Neut % (Auto) (50.0-80.0) % Lymph % (Auto) (25.0-50.0) % [place] % (Auto) (2.0-11.0) % Eos % (Auto) (0.0-4.0) % Baso % (Auto) (0.2-1.2) % Neut # (Auto) (1.8-7.7) x10^3/uL Lymph # (Auto) (1.0-4.8) x10^3/uL [place] # (Auto) (0.0-0.8) x10^3/uL Eos # (Auto) (0.0-0.5) x10^3/uL Baso # (Auto) (0.0-0.2) x10^3/uL Immature Gran # (Auto) (0.00-0.07) x10^3/uL PT 9.7 L (9.9-12.5) SEC INR 0.9 L (2.0-3.5) APTT 24.3 L (25.6-32.8) SEC D-Dimer, Quantitative 1.53 H (<=0.58) mg/LFEU POC VBG pH (7.33-7.43) pH POC VBG pCO2 (41-51) mmHg POC VBG pO2 mmHg POC VBG HCO3 (22-29) mmol/L POC Venous O2 Sat % VBG Base Excess (-(2)-3) mmol/L POC FiO2 Sodium (136-145) mmol/L Potassium (3.5-5.1) mmol/L Chloride (98-107) mmol/L Carbon Dioxide (21-32) mmol/L POC Venous Total CO2 (23-30) mmol/L Anion Gap (5-15) mmol/L BUN (7-18) mg/dL Creatinine (0.55-1.02) mg/dL Est Cr Clr Drug Dosing Estimated GFR (MDRD) Glucose (70-99) mg/dL Lactic Acid (0.4-2.0) mmol/L Calcium (8.5-10.1) mg/dL Corrected Calcium (8.5-10.1) mg/dL Ferritin 2486 H (8-252) ng/mL Total Bilirubin (0.2-1.0) mg/dL AST (15-37) U/L ALT (14-59) U/L Alkaline Phosphatase (46-116) U/L Lactate Dehydrogenase (81-234) U/L Troponin I High Sens (<=51) ng/L C-Reactive Protein (<=0.9) mg/dL NT-Pro-B Natriuret Pep (<=125) pg/mL Total Protein (6.4-8.2) g/dL Albumin (3.4-5.0) g/dL Globulin Albumin/Globulin Ratio Procalcitonin 0.05 L (0.1-0.50) ng/mL Urine Color (YELLOW) Urine Appearance (CLEAR) Urine pH (5.0-8.0) Ur Specific [place] Urine Protein (NEGATIVE) mg/dL Urine Glucose (UA) (NEGATIVE) mg/dL Urine Ketones (NEGATIVE) mg/dL Urine Occult Blood (NEGATIVE) Urine Nitrite (NEGATIVE) Urine Bilirubin (NEGATIVE) Urine Urobilinogen (0.2) EU/dL Ur Leukocyte Esterase (NEGATIVE) U Hyaline Cast (Auto) Urine RBC (NOT SEEN) /HPF Urine WBC (NOT SEEN) /HPF Ur Squamous Epith Cells (NOT SEEN) /HPF Urine Bacteria (NOT SEEN) /HPF Urine Mucus (NOT SEEN) /LPF 09/02/21 09/02/21 Range/Units 11:12 11:27 WBC (4.0-10.0) x10^3/uL RBC (4.00-5.50) x10^6/uL Hgb (12.0-16.0) g/dL Hct (33.0-47.0) % MCV (78.0-93.0) fL MCH (26.0-32.0) pg MCHC (32.0-36.0) g/dL RDW Coeff of Pop (10.0-15.0) % Plt Count (130-400) x10^3/uL Immature Gran % (Auto) (0.00-0.43) % Neut % (Auto) (50.0-80.0) % Lymph % (Auto) (25.0-50.0) % [place] % (Auto) (2.0-11.0) % Eos % (Auto) (0.0-4.0) % Baso % (Auto) (0.2-1.2) % Neut # (Auto) (1.8-7.7) x10^3/uL Lymph # (Auto) (1.0-4.8) x10^3/uL [place] # (Auto) (0.0-0.8) x10^3/uL Eos # (Auto) (0.0-0.5) x10^3/uL Baso # (Auto) (0.0-0.2) x10^3/uL Immature Gran # (Auto) (0.00-0.07) x10^3/uL PT (9.9-12.5) SEC INR (2.0-3.5) APTT (25.6-32.8) SEC D-Dimer, Quantitative (<=0.58) mg/LFEU POC VBG pH 7.45 H (7.33-7.43) pH POC VBG pCO2 40 L (41-51) mmHg POC VBG pO2 39 mmHg POC VBG HCO3 27 (22-29) mmol/L POC Venous O2 Sat 75 % VBG Base Excess 3 (-(2)-3) mmol/L POC FiO2 21 Sodium (136-145) mmol/L Potassium (3.5-5.1) mmol/L Chloride (98-107) mmol/L Carbon Dioxide (21-32) mmol/L POC Venous Total CO2 27 (23-30) mmol/L Anion Gap (5-15) mmol/L BUN (7-18) mg/dL Creatinine (0.55-1.02) mg/dL Est Cr Clr Drug Dosing Estimated GFR (MDRD) Glucose (70-99) mg/dL Lactic Acid (0.4-2.0) mmol/L Calcium (8.5-10.1) mg/dL Corrected Calcium (8.5-10.1) mg/dL Ferritin (8-252) ng/mL Total Bilirubin (0.2-1.0) mg/dL AST (15-37) U/L ALT (14-59) U/L Alkaline Phosphatase (46-116) U/L Lactate Dehydrogenase (81-234) U/L Troponin I High Sens (<=51) ng/L C-Reactive Protein (<=0.9) mg/dL NT-Pro-B Natriuret Pep (<=125) pg/mL Total Protein (6.4-8.2) g/dL Albumin (3.4-5.0) g/dL Globulin Albumin/Globulin Ratio Procalcitonin (0.1-0.50) ng/mL Urine Color Dark yellow H (YELLOW) Urine Appearance Cloudy H (CLEAR) Urine pH 7.0 (5.0-8.0) Ur Specific [place] 1.015 Urine Protein 100 H (NEGATIVE) mg/dL Urine Glucose (UA) Negative (NEGATIVE) mg/dL Urine Ketones Negative (NEGATIVE) mg/dL Urine Occult Blood Small H (NEGATIVE) Urine Nitrite Positive H (NEGATIVE) Urine Bilirubin Small H (NEGATIVE) Urine Urobilinogen >=8.0 H (0.2) EU/dL Ur Leukocyte Esterase Small H (NEGATIVE) U Hyaline Cast (Auto) Few Urine RBC 5-10 H (NOT SEEN) /HPF Urine WBC 20-30 H (NOT SEEN) /HPF Ur Squamous Epith Cells Few H (NOT SEEN) /HPF Urine Bacteria Many H (NOT SEEN) /HPF Urine Mucus Rare H (NOT SEEN) /LPF Result Diagrams: 09/02/21 10:58 09/02/21 10:58 Sepsis Event Note - Focused Exam Vital Signs: Vital Signs Temp Pulse Resp BP Pulse Ox Pulse Ox 09/02/21 11:05 96 96 09/02/21 11:02 36.8 C 80 18 119/83 81 L - Problem List (1) Respiratory failure SNOMED Code(s): 921508952 ICD Code: J96.90 - RESPIRATORY FAILURE, UNSP, UNSP W HYPOXIA OR HYPERCAPNIA Status: Acute Current Visit: Yes Qualifiers: Chronicity: acute Respiratory failure complication: hypoxia Qualified Code(s): J96.01 - Acute respiratory failure with hypoxia (2) COVID-19 SNOMED Code(s): 316945384 ICD Code: U07.1 - COVID-19 Status: Acute Current Visit: Yes (3) Elevated liver enzymes SNOMED Code(s): 026295715 ICD Code: R74.8 - ABNORMAL LEVELS OF OTHER SERUM ENZYMES Status: Acute Cu rrent Visit: Yes (4) Hypothyroidism SNOMED Code(s): 13709993 ICD Code: E03.9 - HYPOTHYROIDISM, UNSPECIFIED Status: Chronic Current Visit: Yes Qualifiers: Hypothyroidism type: acquired Qualified Code(s): E03.9 - Hypothyroidism, unspecified Problem List Initiated/Reviewed/Updated: Yes Orders Last 24hrs: Active Orders 24 hr Category Date Time Status Admission Status [Patient Status] [ADT] Routine ADT 09/02/21 12:14 Active CTA Chest W WO Contrast [Ang Chest] [CT] Stat Exams 09/02/21 12:11 Ordered CULTURE BLOOD [BC] Stat Lab 09/02/21 10:40 Received CULTURE BLOOD [BC] Stat Lab 09/02/21 10:58 Received CULTURE URINE [RM] Stat Lab 09/02/21 11:27 Received Sodium Chloride 0.9% [Saline Flush] Med 09/02/21 10:35 Active 10 ml FLUSH ASDIRECTED PRN Blood Culture x2 Reflex Set [OM.PC] Stat Oth 09/02/21 10:35 Ordered Peripheral IV Insertion Adult [OM.PC] Stat Oth 09/02/21 10:34 Ordered Medication Orders Sodium Chloride (Sodium Chloride 0.9% 10 Ml Syringe) 10 ml FLUSH ASDIRECTED PRN PRN Reason: Keep Vein Open Assessment/Plan Comment:: 56 yo female admitted with acute hypoxic respiratory failure secondary to COVID- 19. #1 Hypoxic respiratory failure, secondary to #2 #2 COVID-19 #3 Elevated liver enzymes, likely secondary to #2 - ED work-up reviewed. D-dimer elevated but CTA negative for PE. Does have bilateral infiltrates, consistent with COVID. - Titrate oxygen to maintain saturations 92-94%. - Remdesivir 200 mg today and 100 mg daily thereafter. Already does have some elevation in her liver enzymes so this will need to be monitored closely. - Daily labs. - Vitamin C, vitamin D, and zinc. - Dexamethasone 6 mg daily. #4 Hypothyroidism - Continue home medications. Patient will be admitted to acute - anticipate admission for 5 days to complete her remdesivir course. Lovenox for VTE prophylaxis. Code status is full - discussed on admission. - Mortality Measure Prognosis:: Good
[2021-09-02] MEDS ORDERED: Iopamidol 755 Mg/ML 100 ML Bottle IVPUSH ONE (12:35)
[2021-09-02] MEDS ORDERED: Lactated Ringers 1,000 ML IV ONE (12:54)
--- NOTE | 2021-09-02 13:25 | CT ---
[id number] CT/CTA Chest EXAM: CT ANGIOGRAM CHEST INDICATION: COVID HYPOXIA, ELEVATED D-DIMER COMPARISON: Chest radiograph same date. DISCUSSION: The pulmonary arteries are normal in appearance with no emboli identified. Extensive bilateral consolidation scattered throughout all lobes of both lungs compatible the clinical history of COVID pneumonia. Mild nonspecific mediastinal and right hilar adenopathy. A abrasives sales representative subcarinal node measures 24 x 16 mm. Trace right pleural effusion. The liver is prominent in size and demonstrates probable steatosis. The imaged upper abdomen is otherwise unremarkable. Scattered degenerative changes in the spine. The osseous structures are otherwise unremarkable. IMPRESSION: 1. Negative for pulmonary embolism. 2. Multifocal consolidation scattered throughout all lobes of both lungs compatible the clinical history of COVID pneumonia. Tavon Smart MD 09/02/21 [id number] Thank you for allowing us to participate in the care of your patient.
[2021-09-02] MEDS ORDERED: REMDESIVIR 200 MG in Sodium Chloride 0.9% 250 ML IV ONE (14:15)
[2021-09-02] MEDS: Enoxaparin 40 MG/0.4 ML Syringe SUBCUT SCH (14:21)
[2021-09-02] MEDS: Acetaminophen 325 MG Tab PO PRN (17:57)
[2021-09-02] MEDS: Ascorbic Acid 500 MG Tab PO SCH (20:27)
[2021-09-02] MEDS: Sodium Chloride 0.9% 10 ML Syringe FLUSH PRN (20:29)
[2021-09-03 07:31] LABS: ANION GAP 13.4 mmol/L (5-15); CHLORIDE,CL 105 mmol/L (98-107); SODIUM,NA 143 mmol/L (136-145)
[2021-09-03 08:03] LABS: PCO2 ARTERIAL,POC 34 mmHg (35-48)
[2021-09-03] MEDS: dexAMETHasone 2 MG, dexAMETHasone 4 MG PO SCH ×2 (08:23)
[2021-09-03] MEDS: Zinc Sulfate 220 MG Cap PO SCH (08:23)
[2021-09-03] MEDS: Levothyroxine 50 MCG Tab PO SCH (08:24)
[2021-09-03] MEDS: Cholecalciferol (Vitamin D3) 25 MCG Tab PO SCH (08:24)
[2021-09-03] MEDS: Ascorbic Acid 500 MG Tab PO SCH ×2 (08:24→20:07)
[2021-09-03] MEDS: guaiFENesin 600 MG Tab.ER PO SCH ×2 (09:12→20:07)
--- NOTE | 2021-09-03 09:57 | PN ---
Progress Note for YOAN ROSA Date: 09/03/2021 Room #: VM.210 SUBJECTIVE: This is the second hospital day for Yoan Rosa. The patient was admitted yesterday with COVID with hypoxemia, respiratory failure. She has had a positive COVID test on 08/26/2021, but had declined monoclonal antibody infusion.Her symptoms began abou 08/22/21. The patient this morning has somewhat of a cough noted. The patient was also found to have a bladder infection as well. In the emergency room, she did receive 1 L of IV fluid. She was placed on Lovenox as well as she is on dexamethasone day 2 of 10 and remdesivir day 2 of 5. OBJECTIVE: Vital Signs: The patient's T-max was 37.0. Her weight is 87.3, which is down 0.6 from yesterday. Her pulse is 85, respiratory rate is 12, saturations are 86 on 6 L. General: She is not in respiratory distress. She is more quiet with occasional cough noted. Heart: Regular rate and rhythm. Lungs: Have some inspiratory crackles on bases bilaterally. Abdomen: Soft. Extremities: Lower extremities, no edema. LABORATORY DATA: Today showed her white blood cell count 4.8, hemoglobin 12.8, platelets 336. 75 segs, 3 bands, 14 lymphs, 3 atypical cells. Blood gases done on 6 L show pH 7.49, pCO2 of 34, pO2 of 57, bicarb 25, saturations are 91, base excess 2. Her sodium is 143, potassium 3.4, creatinine 0.6. GFR greater than 60. Glucose 137. Lactic acid stable at 1.4. Calcium 8.8. Magnesium 2.3. Total bilirubin 0.5, AST is improved at 101, ALT is improved at 111. LDH is improved at 349. CRP is improved at 7.0. Procalcitonin has improved to less than 0.05. Urine culture is showing gram-negative rods. IMPRESSION: 1. COVID pneumonitis. 2. Hypoxemia, worsening. 3. Urinary tract infection. 4. Hypothyroidism. 5. History of thyroid cancer. 6. Obesity. PLAN: The patient will be started on AIRVO to help with oxygenation. We will try to have her prone more often. We will offer her Mucinex as well to see if that helps break up her mucus. Her care will be transferred over to on-call provider with [facility] this afternoon until afternoon and then Kadeem Pepe will be caring for her on the holiday, I will be back on Wednesday. If the patient's course continues to worsen, she may need referral to higher level of care. GM09/03/2021 08:24:50 MODL: 09/03/2021 08:52:38 /[id number] MTDD
[2021-09-03] MEDS: cefTRIAXone 1 GM Vial IVPUSH SCH (12:40)
[2021-09-03] MEDS: REMDESIVIR 100 MG in Sodium Chloride 0.9% 100 ML IV SCH (12:48)
[2021-09-03] MEDS: Enoxaparin 40 MG/0.4 ML Syringe SUBCUT SCH (12:51)
[2021-09-03] MEDS: Acetaminophen 325 MG Tab PO PRN (20:08)
[2021-09-03] MEDS: Sodium Chloride 0.9% 10 ML Syringe FLUSH PRN (20:15)
[2021-09-04 08:22] LABS: CHLORIDE,CL 106 mmol/L (98-107); SODIUM,NA 143 mmol/L (136-145)
[2021-09-04 08:24] LABS: ANION GAP 14.5 mmol/L (5-15)
[2021-09-04] MEDS: guaiFENesin 600 MG Tab.ER PO SCH ×2 (08:30→19:37)
[2021-09-04] MEDS: Ascorbic Acid 500 MG Tab PO SCH ×2 (08:30→19:37)
[2021-09-04] MEDS: dexAMETHasone 2 MG, dexAMETHasone 4 MG PO SCH ×2 (08:30)
[2021-09-04] MEDS: Levothyroxine 50 MCG Tab PO SCH (08:30)
[2021-09-04] MEDS: Zinc Sulfate 220 MG Cap PO SCH (08:30)
[2021-09-04] MEDS: Cholecalciferol (Vitamin D3) 25 MCG Tab PO SCH (08:30)
[2021-09-04] MEDS: cefTRIAXone 1 GM Vial IVPUSH SCH (11:43)
[2021-09-04] MEDS: Enoxaparin 40 MG/0.4 ML Syringe SUBCUT SCH (11:44)
[2021-09-04] MEDS: Sodium Chloride 0.9% 10 ML Syringe FLUSH PRN ×3 (11:47→19:38)
[2021-09-04] MEDS: Acetaminophen 325 MG Tab PO PRN ×2 (11:49→19:37)
[2021-09-04] MEDS: REMDESIVIR 100 MG in Sodium Chloride 0.9% 100 ML IV SCH (11:51)
[2021-09-05 07:16] LABS: CHLORIDE,CL 107 mmol/L (98-107); SODIUM,NA 141 mmol/L (136-145)
[2021-09-05 07:19] LABS: ANION GAP 11.3 mmol/L (5-15)
[2021-09-05] MEDS ORDERED: Potassium Chloride 20 MEQ Tab.ER PO ONE ×2 (07:58→15:30)
--- NOTE | 2021-09-05 09:45 | PN ---
Progress Note for CEDRICK ROSA Date: 09/04/2021 Room #: [facility] CHIEF COMPLAINT: Shortness of breath. SUBJECTIVE: Hospital day #3 on a 56-year-old female patient who was admitted to the acute care floor at [facility] for acute respiratory failure with hypoxia secondary to COVID-19, COVID-19, pneumonia. The patient is currently on remdesivir and Decadron. The patient had refused monoclonal antibody prior to admission. The patient states today that she is only short of breath with activity. She continues to have a dry, nonproductive cough. She has not had any fevers or chills that she is aware of. She denies any headaches, dizziness, or lightheadedness. No chest pain or palpitations. The patient denies any abdominal complaints. The patient denies any problems with urination or bowel movements. Her appetite has been okay. REVIEW OF SYSTEMS: See HPI. OBJECTIVE: Vital Signs: Temperature 98.6, pulse 74, blood pressure 131/86, respiratory rate 23, oxygen saturation 96% on high-flow nasal cannula at 15 L. Skin: Intact, warm, and dry. Respiratory: Lungs are decreased and very coarse throughout, no wheezing, no rhonchi. Cardiovascular: Regular rate and rhythm. No murmur. Abdomen: Bowel sounds are hypoactive x4. Soft, nontender. Extremities: No edema. Neurological: The patient is alert. The patient is oriented to person, place, and time. LABORATORY STUDIES: 1. CBC: White blood cell count 6.3, hemoglobin 12.4, hematocrit 36.9, platelets 416,000. 2. CMP 143, potassium 3.5, chloride 106, CO2 of 26, anion gap 14.5, BUN 14, creatinine 0.6, GFR greater than 60. Glucose 117. Calcium 8.8, AST 83, ALT 104, alkaline phosphatase 80, total protein 6.5. 3. LDH 305. 4. CRP 2.1. ASSESSMENT: 1. Acute respiratory failure with hypoxia secondary to coronavirus disease-19. 2. COVID-19 pneumonia. 3. Supplemental oxygen dependence. 4. Urinary tract infection. 5. Hypothyroidism. 6. History of thyroid cancer. 7. Obesity. PLAN: Hospital day #3 on a 56-year-old female patient who was admitted to the acute care floor at [facility] for acute respiratory failure with hypoxia secondary COVID-19-. The patient still requires high-flow oxygen. We will wean oxygen to keep sats greater than 90%. Continue all other medications the same. The patient is a code 1. The patient does wish to transfer to a high level care should the need arise. I would like the patient proned as much as possible. The patient to stay well hydrated. The patient will continue on isolation given the high flow of oxygen. Recheck laboratory work tomorrow. TB: 09/04/2021 11:18:59 MODL: 09/04/2021 12:19:10 /[id number]
[2021-09-05] MEDS ORDERED: Ondansetron 4 MG/2 ML SDV IVPUSH PRN (10:09)
--- NOTE | 2021-09-05 10:32 | CR ---
[id number] RAD/RAD Chest PA or AP 1V EXAM: SINGLE VIEW CHEST. INDICATION: COVID SHORTNESS OF BREATH COMPARISON: CORRELATION IS MADE WITH SEPTEMBER 02, 2021 FINDINGS: Infiltrates are increasing The cardiac silhouette is stable IMPRESSION: WORSENING PNEUMONIA Miguel Quarles MD 09/05/21 [id number] Thank you for allowing us to participate in the care of your patient.
[2021-09-05] MEDS: Enoxaparin 40 MG/0.4 ML Syringe SUBCUT SCH (12:51)
[2021-09-05] MEDS: cefTRIAXone 1 GM Vial IVPUSH SCH (13:09)
[2021-09-05] MEDS: Sodium Chloride 0.9% 10 ML Syringe FLUSH PRN ×2 (13:26→20:35)
[2021-09-05] MEDS: REMDESIVIR 100 MG in Sodium Chloride 0.9% 100 ML IV SCH (13:37)
[2021-09-05] MEDS: Acetaminophen 325 MG Tab PO PRN ×2 (13:43→20:26)
--- NOTE | 2021-09-05 13:52 | CT ---
[id number] CT/CT Chest WO IV EXAM: CHEST CT WITHOUT CONTRAST INDICATION: Shortness of breath, hypoxia, and COVID 19. COMPARISON: September 02, 2021. DISCUSSION: There is of groundglass opacification and consolidation scattered throughout all lobes of both lungs with a slight peripheral predominance has mildly improved. Trace bilateral pleural effusions are stable to slightly increased. Stable mild cardiomegaly. Mild mediastinal adenopathy with a treasury representative distal right paratracheal node measuring about 19 x 11 mm has not appreciably changed. The liver is prominent in size and demonstrates diffuse steatosis. Scattered degenerative changes in the spine. IMPRESSION: 1. Mild interval improvement in multifocal bilateral groundglass infiltrates and areas of consolidation involving all lobes of both lungs. Tavon Smart MD 09/05/21 [id number] Thank you for allowing us to participate in the care of your patient.
[2021-09-05] MEDS: Levothyroxine 50 MCG Tab PO SCH (15:14)
[2021-09-05] MEDS: guaiFENesin 600 MG Tab.ER PO SCH ×2 (15:14→20:31)
[2021-09-05] MEDS: Cholecalciferol (Vitamin D3) 25 MCG Tab PO SCH (15:15)
[2021-09-05] MEDS: dexAMETHasone 2 MG, dexAMETHasone 4 MG PO SCH ×2 (15:15)
[2021-09-05] MEDS: Ascorbic Acid 500 MG Tab PO SCH ×2 (15:15→20:32)
[2021-09-05] MEDS: Zinc Sulfate 220 MG Cap PO SCH (15:15)
--- NOTE | 2021-09-05 15:42 | PN ---
Progress Note for CEDRICK ROSA Date: 09/05/2021 Room #: [facility] CHIEF COMPLAINT: Shortness of breath. SUBJECTIVE: Hospital day #4 in a 56-year-old female patient who was admitted to the acute care floor at [facility] for acute respiratory failure with hypoxia secondary to COVID-19. The patient is currently on remdesivir and Decadron. The patient did refuse monoclonal antibody. The patient states today she continues to feel short of breath. She has a dry cough. The patient is feeling more tired today. She does not have any headaches, dizziness, or lightheadedness. She denies any chest pain or palpitations. No abdominal complaints. Skin has remained intact. The patient does not feel she has had a fever or chills. REVIEW OF SYSTEMS: See HPI. OBJECTIVE: Vital Signs: Temperature 97.8, pulse 71, blood pressure 139/91, respiratory rate 15, oxygen saturation 99. Skin: Intact, warm, and dry. Respiratory: Lungs are decreased throughout, bibasilar crackles, no wheezing. Cardiovascular: Regular rate and rhythm, no murmur. Abdomen: Soft, nontender. Bowel sounds are hypoactive x4. Extremities: No edema. Neurological: Patient is alert. Patient is oriented to person, place, and time. LABORATORY STUDIES: 1. CBC: White blood cell count 5.7, hemoglobin 12.7, hematocrit 36.9, platelets 422,000. 2. CMP: Sodium 141, potassium 3.1, chloride 107, CO2 of 26, anion gap 11.3, BUN 14, creatinine 0.6, GFR greater than 60. Glucose 107, calcium 8.5, and magnesium 2.1. AST 82, ALT 120, alkaline phosphatase 120, LDH 259. C- reactive protein 0.9, total protein 6.4. ASSESSMENT: 1. Acute respiratory failure with hypoxia secondary to coronavirus disease-19. 2. Coronavirus disease-19 pneumonia. 3. Supplemental oxygen dependence. 4. Urinary tract infection. 5. Hypothyroidism. 6. History of thyroid cancer. 7. Obesity. PLAN: Hospital day #4 on 56-year-old female patient who was admitted to the acute care floor at [facility] for the above diagnoses. Repeat chest x-ray today only said worsened pneumonia. It does not specify COVID-19 or bacterial. Therefore, we will obtain a CT scan without contrast of the lungs for better characterization. Continue to wean oxygen for saturations greater than 90%. Continue medications the same. Long discussion was held with the patient today in regard to a lengthy hospital stay until she is off the oxygen. We will recheck laboratory work tomorrow morning. Patient to continue on acute cares for now. All other orders the same. TB: 09/05/2021 12:14:21 MODL: 09/05/2021 13:15:59 /[id number]
[2021-09-06 07:37] LABS: CHLORIDE,CL 105 mmol/L (98-107); SODIUM,NA 141 mmol/L (136-145)
[2021-09-06 07:43] LABS: ANION GAP 16.2 mmol/L (5-15)
[2021-09-06] MEDS: dexAMETHasone 2 MG, dexAMETHasone 4 MG PO SCH ×2 (08:55)
[2021-09-06] MEDS: Zinc Sulfate 220 MG Cap PO SCH (08:55)
[2021-09-06] MEDS: guaiFENesin 600 MG Tab.ER PO SCH ×2 (08:56→20:07)
[2021-09-06] MEDS: Cholecalciferol (Vitamin D3) 25 MCG Tab PO SCH (08:56)
[2021-09-06] MEDS: Ascorbic Acid 500 MG Tab PO SCH ×2 (08:56→20:07)
[2021-09-06] MEDS: Levothyroxine 50 MCG Tab PO SCH (08:56)
[2021-09-06] MEDS: cefTRIAXone 1 GM Vial IVPUSH SCH (13:14)
[2021-09-06] MEDS: Enoxaparin 40 MG/0.4 ML Syringe SUBCUT SCH (13:39)
[2021-09-06] MEDS: REMDESIVIR 100 MG in Sodium Chloride 0.9% 100 ML IV SCH (13:40)
[2021-09-07 08:32] LABS: CHLORIDE,CL 107 mmol/L (98-107); SODIUM,NA 142 mmol/L (136-145)
[2021-09-07 09:48] LABS: PCO2 ARTERIAL,POC 34 mmHg (35-48)
[2021-09-07] MEDS: Levothyroxine 50 MCG Tab PO SCH (10:05)
[2021-09-07] MEDS: Cholecalciferol (Vitamin D3) 25 MCG Tab PO SCH (10:05)
[2021-09-07] MEDS: dexAMETHasone 2 MG, dexAMETHasone 4 MG PO SCH ×2 (10:05)
[2021-09-07] MEDS: Ascorbic Acid 500 MG Tab PO SCH ×2 (10:06→19:51)
[2021-09-07] MEDS: guaiFENesin 600 MG Tab.ER PO SCH ×2 (10:06→19:51)
[2021-09-07] MEDS: Enoxaparin 40 MG/0.4 ML Syringe SUBCUT SCH (12:59)
[2021-09-07] MEDS: Zinc Sulfate 220 MG Cap PO SCH (12:59)
[2021-09-07] MEDS: cefTRIAXone 1 GM Vial IVPUSH SCH (12:59)
--- NOTE | 2021-09-07 19:41 | PCM.SN.2 ---
- Free Text/Narrative Note: 09/06/[address] Romero, [facility] regarding possible transfer. Dr. Romero declined transfer as he feels [facility] would not offer any different treatment then what the patient's is receiving at [facility].
[2021-09-07] MEDS: Sodium Chloride 0.9% 10 ML Syringe FLUSH PRN (19:54)
--- NOTE | 2021-09-08 06:39 | PN ---
Progress Note for CEDRICK ROSA Date: 09/06/2021 Room #: [facility] CHIEF COMPLAINT: Shortness of breath. SUBJECTIVE: Hospital day #5 on a 56-year-old female patient who was admitted to the acute care floor at [facility] [place] for acute respiratory failure with hypoxia secondary to COVID-19. The patient states she is feeling better today. She continues to require high-flow oxygen to keep her sats greater than 90%. She has an intermittent productive cough. She denies any pain. No headaches, dizziness, or lightheadedness. No chest pain. She is short of breath with activity. No palpitations. No abdominal complaints. No skin concerns. The patient does not think she has had any fevers or chills. REVIEW OF SYSTEMS: See HPI. OBJECTIVE: Vital Signs: Temperature 97.9, pulse 66, blood pressure 125/74, respiratory rate 18, oxygen saturation 96% on oxygen. Skin: Intact, warm, and dry. Respiratory: Lungs are decreased throughout, otherwise clear. Cardiovascular: Regular rate and rhythm, no murmur. Abdomen: Soft, nontender. Bowel sounds are normoactive x4. Extremities: No edema. Neurologic: The patient is alert. The patient is oriented to person, place, and time. LABORATORY STUDIES: 1. CBC: White blood cell count 6.3, hemoglobin 13.1, hematocrit 37.6, platelets 478,000. 2. CMP: Sodium 141, potassium 4.2, chloride 105, CO2 of 24, anion gap 16.2, BUN 16, creatinine 0.6, GFR greater than 60, glucose 121, calcium 8.7, AST 48, ALT 101, alkaline phosphatase 79, total protein 6.7. ASSESSMENT: 1. Acute respiratory failure with hypoxia secondary to coronavirus disease 2019. 2. Coronavirus disease 2019 pneumonia. 3. Supplemental oxygen dependence. 4. Urinary tract infection. 5. Hypothyroidism. 6. History of thyroid cancer. 7. Obesity. PLAN: Hospital day #5 on a 56-year-old female patient who was admitted to the acute care floor at [facility] [place] for the above diagnoses. CT scan yesterday showed extensive COVID pneumonia. It does not appear to be bacterial at this point as the patient has not had any fevers and no leukocytosis. Her cough is not productive. Continue medications the same. Wean oxygen for saturations greater than 90%. Discussed with patient that she will remain on acute cares until she is off the oxygen. Unknown length of time that this will be. The patient is really wanting to go home. We will continue acute cares for now. Recheck laboratory work tomorrow morning. TB: 09/06/2021 09:56:10 MODL: 09/06/2021 10:20:22 /[id number]
--- NOTE | 2021-09-08 07:15 | PN ---
Progress Note for CEDRICK ROSA Date: 09/07/2021 Room #: [facility] CHIEF COMPLAINT: Shortness of breath. SUBJECTIVE: Hospital day #5 on a 56-year-old female patient who was admitted to the acute care floor at [facility] for acute respiratory failure with hypoxia secondary to COVID-19. The patient is currently on remdesivir and Decadron. The patient has refused monoclonal antibody in the past. The patient states today that she continues to have slight shortness of breath with activity. She does not feel short of breath at rest. The patient states overall she is feeling in good health. She has not had any cough. That resolved yesterday. The patient states that her energy is feeling better. The patient does not have any headaches, dizziness, or lightheadedness. The patient denies any chest pain or palpitations. No edema. No abdominal complaints. Skin is intact. No fevers or chills. The patient denies any nausea or vomiting. No diarrhea. REVIEW OF SYSTEMS: See HPI. OBJECTIVE: Vital Signs: Blood pressure 105/68, temperature 98.3, pulse 82, respiratory rate 20, and oxygen saturation 99% on 10 L high-flow. Skin: Intact, warm, and dry. Respiratory: Lungs are decreased, but clear throughout. Cardiovascular: Regular rate and rhythm, no murmur. Abdomen: Soft, nontender. Bowel sounds are hypoactive x4. Extremities: No edema. Neurological: The patient is alert. The patient is oriented to person, place, and time. No focal neurological deficits. LABORATORY STUDIES: 1. CBC: WBC 7.3, hemoglobin 13.8, hematocrit 41.0, platelets 514,000. 2. Arterial blood gas, pH 7.44, pCO2 of 34, PO2 of 82, bicarb 22.7, and oxygen saturation 96.5%. 3. CMP: Sodium 142, potassium 4.0, chloride 107, CO2 of 25, anion gap 14.0, BUN 19, creatinine 0.7, GFR greater than 60, glucose 99, calcium 8.8, AST 34, ALT 81, alkaline phosphatase 75, total protein 6.8. ASSESSMENT: 1. Acute respiratory failure with hypoxia secondary to COVID-19. 2. COVID pneumonia. 3. Supplemental oxygen dependence. 4. Urinary tract infection. 5. Hypothyroidism. 6. History of thyroid cancer. 7. Obesity. PLAN: Hospital day #5 on a 56-year-old female patient who was admitted to the acute care floor at [facility] for acute respiratory failure with hypoxia secondary to COVID-19, COVID-19 pneumonia, and supplemental oxygen. A repeat x- ray shows improvement. We will aggressively wean oxygen today. Discontinue monitor and storage bin tender. We will try and advance activity as tolerated. Continue all other medications the same. The patient's last day of Rocephin should be tomorrow for her UTI. Recheck laboratory work tomorrow. Anticipate stay an additional 1 to 2 days. The patient is a code 1. TB: 09/07/2021 10:05:39 MODL: 09/07/2021 21:16:53 /[id number]
[2021-09-08 07:23] LABS: CHLORIDE,CL 107 mmol/L (98-107); SODIUM,NA 140 mmol/L (136-145)
[2021-09-08] MEDS: Ascorbic Acid 500 MG Tab PO SCH ×2 (08:08→20:04)
[2021-09-08] MEDS: Levothyroxine 50 MCG Tab PO SCH (08:08)
[2021-09-08] MEDS: Cholecalciferol (Vitamin D3) 25 MCG Tab PO SCH (08:09)
[2021-09-08] MEDS: guaiFENesin 600 MG Tab.ER PO SCH ×2 (08:09→20:04)
[2021-09-08] MEDS: dexAMETHasone 2 MG, dexAMETHasone 4 MG PO SCH ×2 (08:09)
--- NOTE | 2021-09-08 09:20 | PN ---
Progress Note for CEDRICK ROSA Date: 09/08/2021 Room #: VM.210 SUBJECTIVE: This is the patient's 6th hospital day for COVID admission. She got covid on 08/26/21 and was admitted on 09/02/21. She is finally starting to improve with needing less demand for oxygen as she had been on high-flow oxygen until this morning. The patient has finished her course of Remdesivir, but is still on Decadron, and she has been on IV Rocephin because of her urinary tract infection. The patient's appetite is a little bit better and she is feeling like having a little bit more energy, which is a good sign. OBJECTIVE: Vital Signs: Her O2 sats this morning, she is 96% on I believe 6 L. Her temperature is 36.2, weight is 84.1, pulse 80, blood pressure is 127/79. General: She is appearing much more alert, moving around. Energy appears much better. Heart: Regular rate. Lungs: Diminished breath sounds on bases. Abdomen: Soft. LABORATORY DATA: Lab work today shows her white blood cell count stable at 7.7, hemoglobin 13.2. Her blood gases yesterday showed pH 7.44, pCO2 of 34, PO2 of 82, and that was on FiO2 of 44. Her sodium today is 140, potassium 4.1, creatinine 0.6, GFR greater than 60, glucose 127. Ferritin has improved to 715 from 2079. Her other LFTs are all back to normal except ALT is 66 from 81 previous day. CRP was less than 0.2 today. LDH is normal at 125. IMPRESSION: 1. COVID pneumonia, improving. 2. Respiratory failure secondary to COVID, much improved. 3. Urinary tract infection. 4. History of thyroid cancer. 5. Obesity. PLAN: We will take her off continuous oxygen monitoring and do intermittent monitoring. We will reduce her down to nasal cannula. Get her up moving in the floor. We will switch her from IV Rocephin and she has had this for 5 days, so she will not need any more oral antibiotics. We will hopefully be able to go home without oxygen. We will see how her chest x-ray is today and actually we will not need any blood work tomorrow. GM09/08/2021 08:32:44 MODL: 09/08/2021 08:53:32 /[id number] MTDD
--- NOTE | 2021-09-08 10:02 | CR ---
[id number] RAD/RAD Chest PA or AP 1V EXAM: SINGLE VIEW CHEST. INDICATION: COVID PNEUMONIA COMPARISON: CORRELATION IS MADE WITH SEPTEMBER 05, 2021 FINDINGS: The right upper lobe infiltrate is decreasing Minimal bilateral infiltrates otherwise are seen. The cardiac silhouette is stable IMPRESSION: OVERALL IMPROVEMENT Miguel Quarles MD 09/08/21 1000 Thank you for allowing us to participate in the care of your patient.
[2021-09-08] MEDS: Zinc Sulfate 220 MG Cap PO SCH (12:13)
[2021-09-08] MEDS: Enoxaparin 40 MG/0.4 ML Syringe SUBCUT SCH (12:13)
[2021-09-09] MEDS: Zinc Sulfate 220 MG Cap PO SCH (08:06)
[2021-09-09] MEDS: Cholecalciferol (Vitamin D3) 25 MCG Tab PO SCH (08:07)
[2021-09-09] MEDS: Ascorbic Acid 500 MG Tab PO SCH ×2 (08:09→20:01)
[2021-09-09] MEDS: guaiFENesin 600 MG Tab.ER PO SCH ×2 (08:10→20:02)
[2021-09-09] MEDS: Levothyroxine 50 MCG Tab PO SCH (08:10)
[2021-09-09] MEDS: dexAMETHasone 2 MG, dexAMETHasone 4 MG PO SCH ×2 (08:10)
[2021-09-09] MEDS: Sodium Chloride 0.9% 10 ML Syringe FLUSH PRN (08:11)
--- NOTE | 2021-09-09 10:09 | PN ---
Progress Note for CEDRICK ROSA Date: 09/09/2021 Room #: VM.210 SUBJECTIVE: The patient is feeling better. She was seen by Physical Therapy yesterday and did not feel need for physical therapy services. Her oxygen levels have been weaned down from 4 L to now just 1 L this morning. She is not eager to go home today. Did talk with her about saying it will be good to determine how she sleeps and if she needs any oxygen during sleep at night. OBJECTIVE: Vital Signs: Her weight is 84.59, which is down 3 kg from admission. Her blood pressure is 97/59, pulse 68, respirations 16, sats are 95% on 1 L. Heart: Regular rate and rhythm. Lungs: Clear to auscultation. Abdomen: Soft. Extremities: No edema. IMPRESSION: 1. Coronavirus disease pneumonia. 2. Hypoxemia, improving. 3. Urinary tract infection. 4. History of thyroid cancer. 5. Obesity. PLAN: We will see if we can get the patient weaned off oxygen. I would like to check a nocturnal oxygen study tonight on a patient with hopefully anticipation of discharge home tomorrow. The patient actually would not be done with her dexamethasone until 09/12/2021. GM09/09/2021 08:28:16 MODL: 09/09/2021 08:48:55 /[id number]
[2021-09-09] MEDS: Enoxaparin 40 MG/0.4 ML Syringe SUBCUT SCH (11:58)
[2021-09-09] MEDS: Acetaminophen 325 MG Tab PO PRN (18:10)
[2021-09-10 05:49] VITALS: BP 98/54; PULSE 81
[2021-09-10 07:43] LABS: CHLORIDE,CL 104 mmol/L (98-107); SODIUM,NA 139 mmol/L (136-145)
[2021-09-10 07:44] LABS: ANION GAP 13.8 mmol/L (5-15)
[2021-09-10] MEDS: dexAMETHasone 2 MG, dexAMETHasone 4 MG PO SCH ×2 (09:15)
[2021-09-10] MEDS: Cholecalciferol (Vitamin D3) 25 MCG Tab PO SCH (09:16)
[2021-09-10] MEDS: guaiFENesin 600 MG Tab.ER PO SCH (09:16)
[2021-09-10] MEDS: Ascorbic Acid 500 MG Tab PO SCH (09:16)
[2021-09-10] MEDS: Levothyroxine 50 MCG Tab PO SCH (09:16)
[2021-09-10] MEDS: Zinc Sulfate 220 MG Cap PO SCH (09:16)
--- NOTE | 2021-09-10 10:06 | PN ---
Progress Note for CEDRICK ROSA Date: 09/10/2021 Room #: VM.210 SUBJECTIVE: The patient is feeling quite well. She rested well overnight. She was able to be off oxygen all day yesterday and last evening. She is not coughing. No chest pain and she does feel ready to go home. OBJECTIVE: Vital Signs: Her weight is 84.36, which is stable. Pulse is 81, blood pressure 98/54, respiratory rate 18, saturations are 95%. Skin: Mark, warm, and dry. Heart: Regular rate and rhythm without murmurs or bruits. Lungs: Clear to auscultation. Abdomen: Soft, nontender. Her overnight oxygen study showed that her level stayed above 90% all night long. LABORATORY DATA: Her lab today shows white blood cell count 8.2, hemoglobin 14.0. Sodium 139, potassium 3.8, creatinine 0.6, GFR greater than 60, magnesium 2.5. LFTs are normal. LDH is 116, which is normal. CRP stayed normal at less than 0.02. Albumin is 3.2. IMPRESSION: 1. COVID pneumonia. 2. Respiratory failure secondary to COVID, resolved. 3. Urinary tract infection, resolved. 4. History of thyroid cancer. 5. Hypothyroidism. 6. Obesity. PLAN: We will allow patient to go home today. She will have 2 more days of dexamethasone after discharge. She will receive her last Lovenox dose today, but does not need to go home on that, and otherwise we will have the patient see me in 2 weeks' time. She does not need home health to follow her. GM09/10/2021 08:27:04 MODL: 09/10/2021 08:55:32 /[id number]
--- NOTE | 2021-09-10 10:12 | DISCH ---
DISCHARGE DIAGNOSES: 1. COVID-19 pneumonia. 2. Respiratory failure secondary to COVID. 3. Urinary tract infection with E coli. 4. Mild hypokalemia. 5. History of thyroid cancer. 6. Hypothyroidism. 7. Obesity. 8. Elevated LFTs, resolved. SUMMARY OF ADMIT HISTORY AND PHYSICAL: The patient was admitted on 09/02/2021 and discharged on 09/10/2021. To note, patient had tested positive for COVID on 08/26/2021 and had been seen in the clinic. At that time, she had declined monoclonal antibody infusion and she had not been vaccinated beforehand. Then patient presented to the emergency room on 09/02/2021. She had been getting more increasingly short of breath. She had not been eating as much food. When seen in the emergency room, she needed 4 L of oxygen to keep her sats above 90% and so therefore she was felt to need acute care. In the emergency room, it was also noted that she had a bladder infection. Her sats were down to 81% on room air. SUMMARY OF HOSPITAL COURSE: The patient received remdesivir for 5 days as well as Decadron for 10 days. She did receive some IV fluids, however, then they were cut back. Her urinalysis did come back positive for E coli. Her initial lab on presentation showed white blood cell count 5.8, hemoglobin 12.9, platelets 332, 85 segs, 10 lymphocytes. Protime 9.7, INR 0.9, PTT 24.3, D- dimer 1.53. Venous blood gases showed pH 7.45, pCO2 of 40, pO2 of 39, bicarb 27, O2 saturation 75, FiO2 of 21. Sodium 142, potassium 3.2, anion gap 15.2, BUN 8, creatinine 0.7, GFR greater than 60, glucose 118. Lactic acid 1.7, ferritin 2489, AST 145, ALT 135, LDH 457. Troponin 20. CRP 9.8. ProBNP 114. Procalcitonin 0.05. Urine had 20 to 30 white blood cells, many bacteria. Chest x-ray was done, which showed moderate patchy bilateral infiltrates. SUMMARY OF HOSPITAL COURSE: The patient was placed in isolation, given oxygen therapy, oral Decadron, IV remdesivir. The patient was placed on vitamin D, vitamin C, and zinc per protocol. The patient's IV fluids had been stopped. She did not need physical therapy. Her lab was followed and it was trended, her white blood cell count always stayed normal. Her blood gases were checked on 09/03, showed ABG; 7.49, pCO2 of 34, pO2 of 57, bicarb 25, sats 94%. The patient received IV Rocephin for her UTI, which also could cover concurrent bacterial pneumonia present. Her potassium did improve. Her ferritin also improved. Liver function tests took a few days to improve. LDH also trended better. It was noted that her chest x-ray almost seemed to get worse. After initial admission, she did have a CTA to rule out PE. This was negative. Then, followup CT done on 09/05/2021 did show improvement. Chest x-ray on 09/08/2021 was markedly improved. The patient's oxygen demands, she had to go up to 45 L of oxygen, then she was able to start to be weaned down. Her maximum oxygen liters was 30 L, that was her maximum requirement, and then she was able to be weaned down to take off the high-flow oxygen, placed on 4 L for 24 hours, maintained her sats very well, was able to be weaned off to room air. She had an overnight oxygen study done on and did not require any oxygen, her sats stayed above 90%. She was seen by Physical Therapy, but not felt to be in need of their services. The patient was felt to be stable to be discharged on 09/10/2021. DISCHARGE MEDICATIONS: 1. Levothyroxine 50 mcg 1 pill daily. 2. Dexamethasone 2 mg tablet plus 4 mg tablet and/or 6 mg tablet daily for 2 more days. DISCHARGE INSTRUCTIONS: The patient is activity as tolerated. She is out of quarantine for her COVID. She should see me in 2 weeks' time in the clinic for recheck. To note, she is full code level status at the time of discharge. Over 30 min of time was spent on discharge. GM09/10/2021 08:34:43 MODL: 09/10/2021 09:22:09 /[id number] ROMULO
[2021-09-10] MEDS: Enoxaparin 40 MG/0.4 ML Syringe SUBCUT SCH (11:10)
--- NOTE | 2021-09-11 10:05 | PCM.EKG ---
#1 Interpretation EKG Date: 09/02/21 Time: 11:24 Rhythm: NSR Rate (Beats/Min): 81 [place]: Normal P-Wave: Present QRS: Normal ST-T: Normal QT: Normal
== END 2021-09-10 11:32 | disposition home or self-care (01) | DRG 177 ==
LOC: VM.ED 11:02 → VM.MS 12:14
PROVIDERS: ADMIT Family Medicine; ATTEND Family Medicine
PROC: XW033E5 Introduction of Remdesivir Anti-infective into Peripheral Vein, Percutaneous Approach, New Technology Group 5 (ICD-10-PCS; principal; 2021-09-02)
PROC: 3E0333Z Introduction of Anti-inflammatory into Peripheral Vein, Percutaneous Approach (ICD-10-PCS; 2021-09-02)
PROC: 3E0DX3Z Introduction of Anti-inflammatory into Mouth and Pharynx, External Approach (ICD-10-PCS; 2021-09-03)
PROC: 5A0935A Assistance with Respiratory Ventilation, Less than 24 Consecutive Hours, High Flow/Velocity Cannula (ICD-10-PCS; 2021-09-03)
DX: U07.1 COVID-19 (principal); J12.82 Pneumonia due to coronavirus disease 2019; J96.01 Acute respiratory failure with hypoxia; N30.00 Acute cystitis without hematuria; B96.20 Unspecified Escherichia coli [E. coli] as the cause of diseases classified elsewhere; E87.6 Hypokalemia; E03.9 Hypothyroidism, unspecified; E66.9 Obesity, unspecified; R79.89 Other specified abnormal findings of blood chemistry; E78.00 Pure hypercholesterolemia, unspecified; D50.9 Iron deficiency anemia, unspecified; Z79.890 Hormone replacement therapy; Z85.850 Personal history of malignant neoplasm of thyroid
CPT/HCPCS: 36415; 36600; 71045; 71250; 71275; 80053; 81001; 82728; 82803; 83605; 83615; 83735; 83880; 84145; 84484; 85025; 85379; 85610; 85730; 86140; 87040; 87086; 87088; 87186; 93005; 94760; 96374; 96375; 97161-GP; 99284; 99285-25; A9270-GY; J0696; J1100; J1650; J2405; J7050; J7120; J8540; Q9967

== ENCOUNTER 2023-05-20 07:19 | Day surgery (SDC) | payer BC, OTHER ==
[~2023-05-20 07:19] MED LIST changes: -Dexamethasone 4 MG/ML SDV IVPUSH ONE; +Lactated Ringers 1,000 ML IV SCH
[2023-05-20] MEDS ORDERED: fentaNYL 100 MCG/2 ML SDV ONE (08:51)
[2023-05-20] MEDS ORDERED: Midazolam 1 MG/ML 2 ML SDV ONE (08:51)
[2023-05-20] MEDS ORDERED: Propofol 200 MG/20 ML SDV ONE (08:52)
[2023-05-20 09:30] VITALS: BP 124/81; PULSE 61
== END 2023-05-20 11:25 | disposition home or self-care (01) ==
LOC: VM.SDS 07:19
PROVIDERS: ATTEND Family Medicine
DX: R19.5 Other fecal abnormalities (principal); E78.00 Pure hypercholesterolemia, unspecified; E03.9 Hypothyroidism, unspecified; C73 Malignant neoplasm of thyroid gland; R73.9 Hyperglycemia, unspecified; D50.8 Other iron deficiency anemias; E66.9 Obesity, unspecified; Z86.16 Personal history of COVID-19; Z90.710 Acquired absence of both cervix and uterus; Z79.890 Hormone replacement therapy; Z79.899 Other long term (current) drug therapy; Z68.37 Body mass index [BMI] 37.0-37.9, adult
CPT/HCPCS: 00812; J2250; J2704; J3010; J7120

== ENCOUNTER 2024-12-04 21:34 | Emergency (ER) | payer BC ==
[2024-12-04] MEDS ORDERED: Sodium Chloride 0.9% 10 ML Syringe FLUSH PRN (21:47)
[2024-12-04 22:01] LABS: BASOPHILS PERCENT AUTO 0.1 % (0.2-1.2); EOSINOPHILS ABSOLUTE AUTO 0.1 x10^3/uL (0.0-0.5); EOSINOPHILS PERCENT AUTO 1.1 % (0.0-4.0); HEMATOCRIT 37.9 % (33.0-47.0); HEMOGLOBIN 13.5 g/dL (12.0-16.0); IMMATURE GRAN ABSOLUTE AUTO 0.01 x10^3/uL (0.00-0.07); LYMPHOCYTES ABSOLUTE AUTO 2.9 x10^3/uL (1.0-4.8); LYMPHOCYTES PERCENT AUTO 38.6 % (25.0-50.0); MEAN CORPUSCULAR HEMOGLOBIN 29.6 pg (26.0-32.0); MEAN CORPUSCULAR HGB CONC 35.6 g/dL (32.0-36.0); MEAN CORPUSCULAR VOLUME 83.1 fL (78.0-93.0); MONOCYTES ABSOLUTE AUTO 0.5 x10^3/uL (0.0-0.8); MONOCYTES PERCENT AUTO 6.4 % (2.0-11.0); NEUTROPHILS PERCENT AUTO 53.7 % (50.0-80.0); PLATELET COUNT,PLT 242 x10^3/uL (130-400); RED BLOOD CELL COUNT 4.56 x10^6/uL (4.00-5.50); WHITE BLOOD CELL COUNT,WBC 7.5 x10^3/uL (4.0-10.0)
[2024-12-04] MEDS: Lactated Ringers 1,000 ML IV ONE (22:02)
[2024-12-04] MEDS: Meclizine 25 MG Tab PO ONE (22:02)
[2024-12-04] MEDS: Ondansetron 4 MG/2 ML SDV IVPUSH ONE (22:02)
[2024-12-04 22:03] LABS: APPEARANCE,URINE CLEAR (CLEAR); BILIRUBIN,URINE NEGATIVE (NEGATIVE); COLOR,URINE YELLOW (YELLOW); GLUCOSE,URINE NEGATIVE (NEGATIVE); KETONES,URINE 40 mg/dL (NEGATIVE); LEUKOCYTE ESTERASE,URINE NEGATIVE (NEGATIVE); NITRITE,URINE NEGATIVE (NEGATIVE); OCCULT BLOOD,URINE NEGATIVE (NEGATIVE); PH,URINE 7.5 (5.0-8.0); PROTEIN,URINE 30 mg/dL (NEGATIVE)
[2024-12-04 22:11] LABS: BACTERIA,URINE FEW /HPF (NOT SEEN); RBC,URINE 0-5 /HPF (NOT SEEN); SQUAMOUS EPITHELIAL CELLS,UR RARE /HPF (NOT SEEN); WBC,URINE 0-5 /HPF (NOT SEEN)
[2024-12-04 22:21] LABS: A/G RATIO 1.14; ANION GAP 19.2 mmol/L (5-15); BILIRUBIN TOTAL 0.6 mg/dL (0.2-1.0); CALCIUM 9.5 mg/dL (8.5-10.1); CREATININE 0.8 mg/dL (0.55-1.02); EST CRCL DRUG DOSING (CG) 64.18 mL/min; POTASSIUM,K 3.2 mmol/L (3.5-5.1); PROTEIN TOTAL,TP 7.5 g/dL (6.4-8.2)
[2024-12-04] MEDS: Amoxicillin/Clavulanate K 875-125 MG Tab PO ONE (23:05)
[2024-12-04] MEDS: Take Home: Ondansetron 4 MG Tab.DIS, 5 Tab Pack PO ONE (23:05)
[2024-12-04 23:15] VITALS: BP 144/84; PULSE 75
== END 2024-12-04 23:11 | disposition home or self-care (01) ==
LOC: VM.ED 21:34
DX: R42 Dizziness and giddiness (principal); H66.93 Otitis media, unspecified, bilateral; E03.9 Hypothyroidism, unspecified; E66.9 Obesity, unspecified; Z68.36 Body mass index [BMI] 36.0-36.9, adult; Z90.710 Acquired absence of both cervix and uterus; Z86.16 Personal history of COVID-19; Z79.890 Hormone replacement therapy; Z79.899 Other long term (current) drug therapy
CPT/HCPCS: 80053; 81001; 85025; 96361; 96374; 99284; A9270; J2405; J7120; Q0162